=== PATIENT | female | born 1975 | race Caucasian/White ===

== ENCOUNTER → 2017-02-13 | Outpatient (REF) | payer OTHER ==
[~2017-02-13] MED LIST: /IPRA3SP; /ONDA4TA; /ONDA4TA OR; /SUCR1TA; ACET65TA; ATIV0.5T; BENT20TA; BIRTH CONTROL PILL OR; CEFT500T; CIPR500T4 OR; CLON0.5T; CLON0.5T OR; COLA100C2 OR; DICY20TA2 OR; DIFL150T OR; EFFE150C; EFFE150C OR; FLAG500T OR; HUMERA; MAXALT-MLT; METH2.5T OR; MIRALEX; MIRALEX OR; NICO21DI4 TD; OPAN10TA16 OR; OPANA; ORTHO TRI-CYCLEN; PENTASA; PENTASA OR; PERC5TAB8; PRED10TA2 OR; PRED20TA; PRIL20CA; PROP40TA; PROP60CA; PROP60TA OR; REPLAX; SENO8.6T5 OR; TRAZ50TA; TRAZ50TA OR; VITAMIN D50000 UNT; XOPE1.252; guaifenesin; mucinex; phenergan
[2017-02-13 12:23] LABS: BASO % 0.5 % (0.0-1.0); EOS # 0.2 K/mm3 (0.0-0.50); EOS % 2.8 % (0.0-3.0); LARGE UNSTAINED CELL # 0.1 K/mm3 (0.0-0.4); LARGE UNSTAINED CELL % 1.2 % (0.0-4.0); LYMPH # 2.3 K/mm3 (1.5-4.5); LYMPH % 34.8 % (24.0-44.0); MEAN CORPUSCULAR HEMOGLOBIN 33.2 pg (27.0-33.0); MEAN CORPUSCULAR HGB CONC 33.6 g/dl (32.0-36.5); MONO # 0.3 K/mm3 (0.0-0.8); MONO % 4.1 % (0.0-5.0); NEUTROPHILS # 3.8 K/mm3 (1.8-7.7); NEUTROPHILS % 56.5 % (36.0-66.0); PLATELET COUNT, AUTOMATED 228 k/mm3 (150-450); RED CELL DISTRIBUTION WIDTH 12.6 % (11.5-14.5); WHITE BLOOD COUNT 6.6 K/mm3 (4.0-10.0)
[2017-02-13 12:41] LABS: ALBUMIN 3.8 GM/DL (3.2-5.2); ALBUMIN/GLOBULIN RATIO 1.31 (1.00-1.93); ALKALINE PHOSPHATASE 68 U/L (45-117); ALT/SGPT 29 U/L (12-78); ANION GAP 7 MEQ/L (8-16); AST/SGOT 15 U/L (15-37); BILIRUBIN,TOTAL 0.5 MG/DL (0.2-1.0); BLOOD UREA NITROGEN 16 MG/DL (7-18); CALCIUM LEVEL 8.7 MG/DL (8.5-10.1); CARBON DIOXIDE LEVEL 25 MEQ/L (21-32); CHLORIDE LEVEL 106 MEQ/L (98-107); CHOLESTEROL LEVEL 213 MG/DL (<200); CREATININE FOR GFR 0.99 MG/DL (0.55-1.02); FREE T4 1.02 NG/DL (0.76-1.46); GLOMERULAR FILTRATION RATE > 60.0 (>60); GLUCOSE, FASTING 101 MG/DL (70-105); POTASSIUM SERUM 4.4 MEQ/L (3.5-5.1); SODIUM LEVEL 138 MEQ/L (136-145); TOTAL PROTEIN 6.7 GM/DL (6.4-8.2); TRIGLYCERIDES LEVEL 111 MG/DL (<150)
[2017-02-13 12:50] LABS: VITAMIN B12 LEVEL 441 PG/ML
[2017-02-13 12:51] LABS: FOLATE 13.3 NG/ML
[2017-02-13 13:09] LABS: ERYTHROCYTE SEDIMENTATION RATE 8 mm/hr (0-20)
== END ==
LOC: M LABDRAW1 11:05
PROVIDERS: ATTEND Family Medicine
DX: Z00.00 Encounter for general adult medical examination without abnormal findings (principal); K50.90 Crohn's disease, unspecified, without complications

== ENCOUNTER → 2017-04-04 | Day surgery (SDC) | payer OTHER ==
[~2017-04-04] VITALS: Ht 162.6 cm; Wt 73.9 kg
[~2017-04-04] MED LIST changes: +EFFE150C PO; +IBUPROFEN 600 MG TAB PO PRN; +KETOROLAC 60 MG/2 ML VIAL (J1885) As Ordered ONE; +LIDOCAINE 2% INJ 100 MG/5 ML SDV (FOR ANES.) As Ordered ONE; +LISI10TA4 PO; +LR 1,000 ML IV SCH; +MEDR1VL IM; +MEPERIDINE INJ 25 MG/ML VIAL (J2175) IV PRN; +METOCLOPRAMIDE INJ 10MG/2ML VIAL (J2765) IV PRN; +MIDAZOLAM INJ 2 MG/2 ML VIAL (J2250) As Ordered ONE; +ONDANSETRON 4MG/2ML VIAL (J2405) As Ordered ONE; +ONDANSETRON 4MG/2ML VIAL (J2405) IV PRN; +PROP40TA PO; +PROPOFOL 200 MG/20 ML VIAL As Ordered ONE; +VALT1TAB PO; +dexameTHASONE 4 MG/ML 1ML VIAL (J1100) As Ordered ONE; +fentaNYL 100 MCG/2 ML INJECTION (J3010) As Ordered ONE; +fentaNYL 100 MCG/2 ML INJECTION (J3010) IV PRN
[2017-04-04 08:41] LABS: CONTROL LINE UCG INT CTR LINE PRESENT
[2017-04-04] MEDS: LR 1,000 ML IV SCH ×2 (08:44→11:06)
--- NOTE | 2017-04-04 11:21 | REP ---
Supine abdomen single AP view, portable study: Comparison is 06/13/2010. There is no visible radiopaque IUD. The bowel gas pattern is normal. There are pelvic calcifications, unchanged, likely phleboliths. Skeletal structures and soft tissues are otherwise unremarkable. Impression: No radiopaque IUD is identified. Signed by Armani Arroyo MD 04/04/2017 11:13 A
[2017-04-04] MEDS: PERCOCET 5MG/325MG TAB PO PRN (11:49)
[2017-04-04 12:00] VITALS: BP 139/88
--- NOTE | 2017-04-04 18:11 | RO ---
DATE OF PROCEDURE: 04/04/2017 PREOPERATIVE DIAGNOSIS: Inaccessible intrauterine device (IUD) in the office. POSTOPERATIVE DIAGNOSIS: Intrauterine device (IUD) not present. PROCEDURE: Diagnostic hysteroscopy and intraoperative x-ray. SURGEON: Dr. Michelle Smith FIELD SALES CONSULTANT: ANESTHESIA: LMA. DESCRIPTION OF PROCEDURE: Kelsea was brought to the operating room where sufficient LMA anesthesia was induced. She was prepped, draped and positioned in the usual sterile fashion. The uterus was sounded o 7-1/2 and dilated enough to allow introduction of the hysteroscope, which was used to visualize the endometrial cavity. Some normal sort of fluffy tissue along the endometrium, normal ostia and an empty cavity. Did not see any evidence of previous injury or difficulty, or inflammation. She had had a preoperative film that stated the IUD was in the endometrial cavity, and I had not been able to get it in the office and decision was made to go ahead and do some intraoperative x-rays because the patient had felt that it had fallen out and that is what had driven the initial film. I certainly did not see any evidence of the IUD hysteroscopically whatsoever, so we went ahead and did x-rays, pelvis to diaphragm, so there were three films, to make sure we got all of it and there was no IUD present. So, although it took a moment to pause to take those films, that certainly prevented us from laparoscopically going after an IUD that was clearly not there and so the procedure was ended. Estimated blood loss for the procedure was maybe 2 mL. Fluid replacement was crystalloid. Complications: None other than the finding of the IUD not present. Condition and Disposition: Kelsea tolerated the procedure well and was recovering in the recovery room in good condition.
== END | disposition home or self-care (01) ==
LOC: M SDC 08:01
PROVIDERS: ATTEND Obstetrics & Gynecology
DX: Z30.431 Encounter for routine checking of intrauterine contraceptive device (principal); K50.90 Crohn's disease, unspecified, without complications; N28.9 Disorder of kidney and ureter, unspecified; F32.9 Major depressive disorder, single episode, unspecified; N94.3 Premenstrual tension syndrome; K44.9 Diaphragmatic hernia without obstruction or gangrene; F41.9 Anxiety disorder, unspecified; G43.909 Migraine, unspecified, not intractable, without status migrainosus; F17.210 Nicotine dependence, cigarettes, uncomplicated; Z88.2 Allergy status to sulfonamides; Z79.899 Other long term (current) drug therapy
CPT/HCPCS: 58555; 74000; 84703; J1100; J1885; J2250; J2405; J3010

== ENCOUNTER → 2017-07-04 | Outpatient (REF) | payer OTHER ==
[~2017-07-04] MED LIST changes: -IBUPROFEN 600 MG TAB PO PRN; -KETOROLAC 60 MG/2 ML VIAL (J1885) As Ordered ONE; -LIDOCAINE 2% INJ 100 MG/5 ML SDV (FOR ANES.) As Ordered ONE; -LR 1,000 ML IV SCH; -MEPERIDINE INJ 25 MG/ML VIAL (J2175) IV PRN; -METOCLOPRAMIDE INJ 10MG/2ML VIAL (J2765) IV PRN; -MIDAZOLAM INJ 2 MG/2 ML VIAL (J2250) As Ordered ONE; -ONDANSETRON 4MG/2ML VIAL (J2405) As Ordered ONE; -ONDANSETRON 4MG/2ML VIAL (J2405) IV PRN; -PROPOFOL 200 MG/20 ML VIAL As Ordered ONE; -dexameTHASONE 4 MG/ML 1ML VIAL (J1100) As Ordered ONE; -fentaNYL 100 MCG/2 ML INJECTION (J3010) As Ordered ONE; -fentaNYL 100 MCG/2 ML INJECTION (J3010) IV PRN
[2017-07-04 12:40] LABS: ALBUMIN 3.8 GM/DL (3.2-5.2); ALBUMIN/GLOBULIN RATIO 1.19 (1.00-1.93); ALKALINE PHOSPHATASE 73 U/L (45-117); ALT/SGPT 26 U/L (12-78); ANION GAP 6 MEQ/L (8-16); AST/SGOT 14 U/L (15-37); BILIRUBIN,TOTAL 0.6 MG/DL (0.2-1.0); BLOOD UREA NITROGEN 14 MG/DL (7-18); CALCIUM LEVEL 8.8 MG/DL (8.5-10.1); CARBON DIOXIDE LEVEL 27 MEQ/L (21-32); CHLORIDE LEVEL 107 MEQ/L (98-107); CREATININE FOR GFR 0.96 MG/DL (0.55-1.02); GLOMERULAR FILTRATION RATE > 60.0 (>60); GLUCOSE, FASTING 101 MG/DL (70-105); SODIUM LEVEL 140 MEQ/L (136-145)
== END ==
LOC: M LABDRAW1 10:13
PROVIDERS: ATTEND Family Medicine
DX: E55.9 Vitamin D deficiency, unspecified (principal); I10 Essential (primary) hypertension

== ENCOUNTER 2018-10-15 11:23 | Emergency (ER) | payer OTHER ==
[~2018-10-15] VITALS: Ht 162.6 cm; Wt 77.3 kg
[~2018-10-15 11:23] MED LIST changes: -EFFE150C PO; +EFFE150C2 PO; -PROP40TA PO; +PROP40TA62 PO
[2018-10-15] MEDS ORDERED: ROBA500T PO (12:11)
[2018-10-15] MEDS ORDERED: NAPR-50 PO (12:11)
[2018-10-15] MEDS ORDERED: KETOROLAC 30 MG/ML VIAL (J1885) As Ordered ONE (12:15)
[2018-10-15] MEDS ORDERED: KETOROLAC 60 MG/2 ML VIAL (J1885) IM ONE (12:15)
[2018-10-15 12:35] VITALS: BP 100/58
--- NOTE | 2018-10-16 07:33 | ECGEPIP ---
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 Order Number: [id number] Reading MD: Cal Jacobs Measurements Intervals [place] Rate: 63 P: 54 ME: 157 QRS: 49 QRSD: 84 T: 53 QT: 409 QTc: 419 Interpretive Statements SINUS RHYTHM POSSIBLE LEFT ATRIAL ENLARGEMENT NO PRIORS FOR COMPARISON Electronically Signed On 10-16-2018 7:33:09 EST by Cal Jacobs
== END 2018-10-15 12:40 | disposition home or self-care (01) ==
LOC: M ED 11:23
DX: S46.912A Strain of unspecified muscle, fascia and tendon at shoulder and upper arm level, left arm, initial encounter (principal)
CPT/HCPCS: 93005; 96372; 99284; J1885

== ENCOUNTER → 2018-12-03 | Outpatient (REF) | payer OTHER ==
[~2018-12-03] MED LIST changes: +NAPR-50 PO; +ROBA500T PO
== END ==
LOC: M LABDRAW1 15:56
PROVIDERS: ATTEND Internal Medicine Gastroenterology
DX: R14.0 Abdominal distension (gaseous) (principal)

== ENCOUNTER → 2019-01-05 | Outpatient (REF) | payer MEDICAID, OTHER ==
[~2019-01-05] MED LIST changes: -/IPRA3SP; -/ONDA4TA; -/ONDA4TA OR; -/SUCR1TA; +ATRO1SOL13; -NAPR-50 PO; +NAPR-837 PO; +ONDA-1; +ONDA-1 OR; +SUCR1TAB56
[2019-01-05 14:00] LABS: INFLUENZA A AMPLIFICATION NEGATIVE (NEGATIVE); INFLUENZA B AMPLIFICATION NEGATIVE (NEGATIVE)
== END ==
LOC: M LAB REF 12:54
PROVIDERS: ATTEND Physician Assistant Medical
DX: J11.1 Influenza due to unidentified influenza virus with other respiratory manifestations (principal)

== ENCOUNTER → 2019-03-09 | Outpatient (REF) | payer OTHER ==
[2019-03-09 11:35] LABS: BASO % 0.5 % (0.0-1.0); EOS # 0.1 10^3/uL (0.0-0.50); EOS % 1.1 % (0.0-3.0); HEMATOCRIT 42.3 % (36.0-47.0); LYMPH # 2.5 10^3/uL (1.5-4.5); LYMPH % 38.1 % (24.0-44.0); MEAN CORPUSCULAR HEMOGLOBIN 32.9 pg (27.0-33.0); MEAN CORPUSCULAR HGB CONC 33.1 g/dl (32.0-36.5); MEAN CORPUSCULAR VOLUME 99.5 fl (80.0-96.0); MONO # 0.5 10^3/uL (0.0-0.8); MONO % 7.4 % (0.0-5.0); NEUTROPHILS # 3.4 10^3/uL (1.8-7.7); NEUTROPHILS % 52.7 % (36.0-66.0); PLATELET COUNT, AUTOMATED 220 10^3/uL (150-450); RED BLOOD COUNT 4.25 10^6/uL (4.00-5.40); WHITE BLOOD COUNT 6.5 10^3/uL (4.0-10.0)
[2019-03-09 11:36] LABS: AMORPHOUS SEDIMENT SMALL (NEGATIVE); APPEARANCE, URINE TURBID (CLEAR); BACTERIA, URINE AUTO NEGATIVE (NEGATIVE); BILIRUBIN, URINE AUTO NEGATIVE (NEGATIVE); BLOOD, URINE BLOOD NEGATIVE (NEGATIVE); COLOR, URINE YELLOW (YELLOW); GLUCOSE, URINE (UA) AUTO 1+ mg/dL (NEGATIVE); KETONE, URINE AUTO NEGATIVE (NEGATIVE); LEUKOCYTE ESTERASE, URINE AUTO NEGATIVE (NEGATIVE); MUCUS, URINE LARGE (NEGATIVE); NITRITE, URINE AUTO NEGATIVE (NEGATIVE); PROTEIN, URINE AUTO NEGATIVE (NEGATIVE); RBC, URINE AUTO 8 /HPF (0-3); SPECIFIC GRAVITY URINE AUTO 1.027 (1.002-1.035); SQUAMOUS EPITHELIAL CELL UR AU 0 /HPF (0-6); UROBILINOGEN, URINE AUTO 0.2 mg/dL (0.0-2.0); WBC, URINE AUTO 0 /HPF (0-3)
[2019-03-09 11:57] LABS: ALBUMIN 3.2 GM/DL (3.2-5.2); ALT/SGPT 27 U/L (12-78); BILIRUBIN,TOTAL 0.7 MG/DL (0.2-1.0); BLOOD UREA NITROGEN 11 MG/DL (7-18); CALCIUM LEVEL 8.6 MG/DL (8.5-10.1); CARBON DIOXIDE LEVEL 27 MEQ/L (21-32); CHLORIDE LEVEL 109 MEQ/L (98-107); CHOLESTEROL LEVEL 170 MG/DL (<200); CHOLESTEROL RISK RATIO 2.656 (<5); CREATININE FOR GFR 0.89 MG/DL (0.55-1.30); FREE T4 0.97 NG/DL (0.76-1.46); GLOMERULAR FILTRATION RATE > 60.0 (>58); GLUCOSE, FASTING 98 MG/DL (70-100); HDL CHOLESTEROL 64 MG/DL (>40); LDL CHOLESTEROL 82 MG/DL (<100); NON-HDL-C 106 MG/DL; POTASSIUM SERUM 4.4 MEQ/L (3.5-5.1); SODIUM LEVEL 143 MEQ/L (136-145); TOTAL 25(OH) VITAMIN D 48.9 NG/ML (30.0-100.0); TOTAL PROTEIN 6.4 GM/DL (6.4-8.2); TRIGLYCERIDES LEVEL 120 MG/DL (<150); VITAMIN B12 LEVEL 630 PG/ML (247-911)
[2019-03-09 12:14] LABS: ERYTHROCYTE SEDIMENTATION RATE 5 mm/hr (0-20)
== END ==
LOC: M LAB REF 10:46
PROVIDERS: ATTEND Family Medicine
DX: I10 Essential (primary) hypertension (principal); F33.9 Major depressive disorder, recurrent, unspecified; G43.009 Migraine without aura, not intractable, without status migrainosus

== ENCOUNTER → 2019-03-30 | Outpatient (CLI) | payer OTHER ==
--- NOTE | 2019-03-30 18:30 | REP ---
Clinical: Pain. Technique: Internal rotation, external rotation, and Y view of the left shoulder. Findings: Generalized age-related changes are appreciated. No overt osteoarthritic degenerative findings noted. No acute fracture dislocation. Acromioclavicular and glenohumeral joints are intact and normal. Impression: Generalized age-related changes. Electronically Signed by Jair Roca MD 03/30/2019 06:21 P
== END ==
LOC: M WUC 17:46
PROVIDERS: ATTEND Physician Assistant
DX: M25.512 Pain in left shoulder (principal)

== ENCOUNTER → 2019-10-23 | Outpatient (REF) | payer OTHER ==
[2019-10-23 11:35] LABS: CREATININE FOR GFR 1.13 MG/DL (0.55-1.30); GLOMERULAR FILTRATION RATE 56.2 (>58)
== END ==
LOC: M LAB REF 11:07
PROVIDERS: ATTEND Physician Assistant
DX: M47.22 Other spondylosis with radiculopathy, cervical region (principal)

== ENCOUNTER 2020-03-03 05:35 | Inpatient (IN) | payer OTHER ==
[2020-03-03] VITALS (11 sets, daily range): BP systolic 105–155; BP diastolic 61–92
[~2020-03-03] VITALS: Ht 162.6 cm; Wt 83.0 kg
[2020-03-03] MEDS ORDERED: ACYC400T PO (05:56)
[2020-03-03] MEDS ORDERED: FLUO40CA PO (05:56)
[2020-03-03] MEDS ORDERED: GABA-843 PO (05:56)
[2020-03-03] MEDS ORDERED: PROP60TA18 PO (05:56)
[2020-03-03 06:04] LABS: BASO # 0.1 10^3/uL (0.0-0.2); BASO % 0.4 % (0.0-1.0); EOS # 0.1 10^3/uL (0.0-0.5); EOS % 0.5 % (0.0-3.0); HEMATOCRIT 42.4 % (36.0-47.0); LYMPH # 2.8 10^3/uL (1.5-5.0); LYMPH % 24.8 % (24.0-44.0); MEAN CORPUSCULAR HEMOGLOBIN 31.4 pg (27.0-33.0); MEAN CORPUSCULAR VOLUME 95.1 fl (80.0-96.0); MONO # 0.6 10^3/uL (0.0-0.8); MONO % 5.7 % (0.0-5.0); NEUTROPHILS # 7.6 10^3/uL (1.5-8.5); NEUTROPHILS % 68.2 % (36.0-66.0); PLATELET COUNT, AUTOMATED 224 10^3/uL (150-450); RED BLOOD COUNT 4.46 10^6/uL (4.00-5.40); WHITE BLOOD COUNT 11.2 10^3/uL (4.0-10.0)
[2020-03-03 06:15] LABS: INR 1.15; PROTHROMBIN TIME 14.4 SECONDS (11.8-14.0)
[2020-03-03] MEDS ORDERED: ALBUTEROL 90 MCG/ACT 8GM HFA INHALER INH ONE (06:15)
[2020-03-03] MEDS ORDERED: dexameTHASONE 20MG/5ML VIAL (J1100 PER 1MG) IV ONE (06:15)
[2020-03-03 06:37] LABS: ALBUMIN 3.6 GM/DL (3.2-5.2); ALT/SGPT 34 U/L (12-78); BILIRUBIN,DIRECT 0.2 MG/DL (0.0-0.2); BILIRUBIN,TOTAL 0.7 MG/DL (0.2-1.0); CK-MB VALUE MASS 1.5 NG/ML (<3.6); CPK CREATINE PHOSPHOKINASE 82 U/L (26-192); LIPASE 79 U/L (73-393); MB/CK RELATIVE INDEX 1.83 (< OR =4); TROPONIN I 0.16 NG/ML (< 0.10)
[2020-03-03 07:17] LABS: HCG, SERUM QUALITATIVE NEGATIVE (NEGATIVE)
[2020-03-03] MEDS ORDERED: ISOVUE-370 76% 100ML VIAL As Ordered ONE (07:27)
[2020-03-03] MEDS ORDERED: MORPHINE 4 MG/ML 1ML VIAL/SYRINGE (J2270) IV ONE (07:45)
[2020-03-03] MEDS ORDERED: ONDANSETRON 4MG/2ML VIAL IV ONE (07:45)
--- NOTE | 2020-03-03 07:56 | REPVR ---
PROCEDURE INFORMATION: Exam: CT Angiography Chest With Contrast Exam date and time: 03/03/2020 6:55 AM Age: 44 years old Clinical indication: Shortness of breath; Chest pain; Additional info: Cp, SOB, pleuritic cp, R/O pe TECHNIQUE: Imaging protocol: Computed tomographic angiography of the chest with intravenous contrast. 3D rendering: MIP and/or 3D reconstructed images were created by the technologist. Radiation optimization: All CT scans at this facility use at least one of these dose optimization techniques: automated exposure control; mA and/or kV adjustment per patient size (includes targeted exams where dose is matched to clinical indication); or iterative reconstruction. Contrast material: ISOVUE 370; Contrast volume: 75 ml; Contrast route: IV; COMPARISON: CR PORTABLE CHEST X-RAY 03/03/2020 6:13 AM FINDINGS: Pulmonary arteries: There is a large saddle embolism spanning the right and left main pulmonary arteries extending to the lobar pulmonary arteries with significant decreased flow into the mid to distal segmental and subsegmental pulmonary arteries. The pulmonary trunk is dilated measuring around 3.2 centimetres. Aorta: The thoracic aorta is normal in caliber with no evidence of dissection. Lungs: There is a 5 mm calcified granuloma in the right middle lobe. Small patchy ground-glass opacities clustered in the posterior segment of the right upper lobe on axial images 52-71. Pleural space: Unremarkable. No pneumothorax. No pleural effusion. Heart: There is right heart dilatation and septal deviation to the left. Lymph nodes: Unremarkable. No enlarged lymph nodes. Spleen: Few calcified granuloma seen in the spleen. Bones/joints: Unremarkable. No acute fracture. Soft tissues: Unremarkable. IMPRESSION: 1. Large saddle embolism spanning the right and left main pulmonary arteries extending to the upper and lower lobar pulmonary arteries with significant decreased perfusion to the segmental and subsegmental branches with CT evidence of right heart strain. 2. Cluster of small patchy opacities in the posterior segment of the right upper lobe are nonspecific and could represent early parenchymal infarcts or infectious/inflammatory infiltrates. 3. 5 mm right middle lobe calcified granuloma and calcified splenic granulomas. Electronically signed by: Hernando Nelson On 03/03/2020 07:55:59 AM
[2020-03-03] MEDS ORDERED: HEPARIN SOD (PORCINE) 5000UNITS/ML VIAL (J1644 PER 1000UNITS) IV ONE (08:15)
[2020-03-03 08:27] LABS: PARTIAL THROMBOPLASTIN TIME 28.3 SECONDS (25.0-38.4)
[2020-03-03] MEDS: HEPARIN DRIP 25,000 UNITS in IV 1 EA IV SCH ×3 (08:29→14:12)
[2020-03-03 08:30] LABS: CK-MB VALUE MASS 1.7 NG/ML (<3.6); MB/CK RELATIVE INDEX 2.21 (< OR =4); TROPONIN I 0.18 NG/ML (< 0.10)
[2020-03-03] MEDS ORDERED: ONDANSETRON 4MG/2ML VIAL IV PRN (09:00)
[2020-03-03] MEDS ORDERED: VITA50005 PO (09:13)
--- NOTE | 2020-03-03 10:15 | REP ---
CHEST, SINGLE VIEW: Single view of the chest is performed. There is mild right upper lobe infiltrate. The left lung is clear. The heart is not enlarged. Mediastinal silhouette is unremarkable. IMPRESSION: Mild right upper lobe infiltrate. Electronically Signed by Armani Ann MD 03/03/2020 07:38 P
[2020-03-03] MEDS ORDERED: fentaNYL 100 MCG/2 ML INJECTION (J3010) As Ordered ONE (11:23)
[2020-03-03] MEDS ORDERED: MIDAZOLAM INJ 2MG/2ML VIAL (J2250 PER 1MG) As Ordered ONE (11:24)
[2020-03-03] MEDS ORDERED: LIDOCAINE 1% MDV 20ML VIAL As Ordered ONE (11:25)
[2020-03-03] MEDS ORDERED: ISOVUE-300 61% 50ML VIAL As Ordered ONE (11:25)
[2020-03-03] MEDS ORDERED: diphenhydrAMINE 50MG/ML VIAL (J1200) As Ordered ONE (11:25)
[2020-03-03] MEDS ORDERED: HEPARIN SOD (PORCINE) 5000UNITS/ML VIAL (J1644 PER 1000UNITS) IV PRN (11:30)
[2020-03-03] MEDS: FLUoxetine 20 MG CAP PO SCH (11:49)
[2020-03-03] MEDS ORDERED: HEPARIN 25,000 UNITS/250 ML D5W BAG (100 UNITS/ML) (J1644 PER 1000UNITS) As Ordered ONE (12:11)
[2020-03-03] MEDS ORDERED: HEPARIN DRIP 25,000 UNITS in IV 1 EA IV SCH (12:15)
[2020-03-03] MEDS ORDERED: ALTEPLASE 2MG/2ML VIAL As Ordered ONE (12:27)
--- NOTE | 2020-03-03 13:17 | HPEPDOC ---
[facility] Medical History & Physical Date of Admission Mar 03, 2020 Date of Service: Mar 03, 2020 History and Physical PCP: Dr. Walters in [place]. CHIEF COMPLAINT: Exertional dyspnea and chest pain HISTORY OF PRESENT ILLNESS: Pt is a 44 yo female with PMH of Crohn's disease and active tobacco use presented to [facility] ER via private vehicle d/t exertional dyspnea and precordial/epigastric chest pain that started yesterday around lunch time. She reported that she never had this before, and that her exertional dyspnea and chest pain have been worsening. She said the pain is in sharp/tight precordial/epigastric region across but worse on left side, aggrav factor including palpation/pressure and inspiration. Denies dyspnea at rest. Pt reported nausea without vomiting, dizziness, and lightheadedness. Denies any fever, chills, or palpitation. It was noted that 2 weeks ago she had an injury of her left knee which is reported to be torn ACL with MCL strain and ripped medial meniscus without bone fracture. Pt reported prolonged immoblization d/t the injury but denies any pain or swelling in b/l UE or LE except for around the left knee where the injury was at. She had no hx of any clots including CVA, GA, PE, or DVT. She smokes 3 cig/day X 20 yrs. Pt was on depot povera since 2016. Pt also reported abdominal pain in all 4 quad but reported no bloody stool. PAST MEDICAL HISTORY: 1. Crohn's disease with exacerbation 2. Constipation 3. Anxiety 4. Hx of migraines 5. Calcified right lung nodule 6. Leukocytosis 7. Thrombocytopenia PAST SURGICAL HISTORY: 1. B/l ear tube insertion in child hall SOCIAL HISTORY:. Resides in: home, lives with sister, boyfriend, and her son Children: son Tobacco use:active smoker ETOH: reported very occasionally Illicit drug use: marijuna FAMILY HISTORY: Pt voiced no significant FHX except for grandfather had a blood clot but she is unsure what organ was affected/the diagnosis ALLERGIES: Please see below. REVIEW OF SYSTEMS: CONSTITUTIONAL: Neg for fever/chills. HEENT: Neg for vision blurriness CARDIOVASCULAR: Pos for chest pain RESPIRATORY: Pos for exertional dyspnea and chest pain. Denies wheezing GASTROINTESTINAL: Pos for abd pain; denies blood in stool SKIN: mild swelling and pain in left knee NEUROLOGICAL: NO new acute numbness, tingling, or loss of sensation HOME MEDICATIONS: Please see below. PHYSICAL EXAMINATION: VITAL SIGNS: Tdodalaotyo77.2, pulse 95, respiratory rate18, blood pressure 126/87, pulse oximetry 96% on 2L NC GENERAL APPEARANCE: In mild to mod distress, alert and awake. HEENT: Head normocephalic, atraumatic, mucosa moist and pink CARDIOVASCULAR: Mildly tachycardic, normal S1 and S2, no murmur RESPIRATORY: mildly decreased breath sounds in the right lung field, good air entry b/l, no obvious rales or wheezing aus. ABDOMEN: Soft, no guarding, no abdominal pain. EXTREMITIES: No Niko's sign b/l. NEUROLOGICAL: Memory and cognitive function grossly stable. CN2-12 grossly stable. Pt able to move b/l UE and right LE, left LE in knee immobilizer PSYCHIATRIC: Mood appro to situation LABORATORY DATA: See below. IMAGIN03/03/2020 CTA showed a large saddle embolism spanning b/lft main pulmonary arteries extending to the upper and lower lobar pulmonary arteries; right heart strain. Cluster of small patchy opacities in the posterior segment of the RUL. 5 mm RML calcified granuloma and calcified splenic granulomas. CXR showed mild right upper lobe infiltrate. MICROBIOLOGY: Please see below. ASSESSMENT: Pt is a 44 yo female with PMH of Crohn's disease and active tobacco use presented to [facility] ER d/t exertional dyspnea and precordial/epigastric chest pain that started yesterday found to have saddle pulm embolism . PLAN: 1. Saddle embolism, showed a large saddle embolism spanning b/left main pulmonary arteries extending to the upper and lower lobar pulmonary arteries; right heart strain. Cluster of small patchy opacities in the posterior segment of the RUL. 5 mm RML calcified granuloma and calcified splenic granulomas. S/p heparin bolus and heparin drip. Pt's vitals currently roughly stable with NC. She is undergoing catheter directed thrombolysis with IR. 2. Crohn's disease. Not on medication at home. Pt likely does not have a Crohn's flare and abd pain is likely 2/2 decreased oxygenation to GI system. Follow up lactate, anticipate improvement after thrombolysis 3. Anxiety. Cont home med DVT prophylaxis: on Heparin GI prophylaxis: Protonix Attending attestation: I evaluated and examined the patient in person; I discussed the care with Resident in detail and agree with the plan above. Vital Signs Vital Signs Date Time Temp Pulse Resp B/P (MAP) Pulse Ox O2 Delivery O2 Flow Rate FiO2 03/03/20 11:38 98.6 95 20 97 Nasal Cannula 2 03/03/20 11:02 105/80 (88) Laboratory Data Labs 24H Laboratory Tests 2 03/03/20 05:54: Immature Granulocyte % (Auto) 0.4, Neutrophils (%) (Auto) 68.2H, Lymphocytes (%) (Auto) 24.8, Monocytes (%) (Auto) 5.7H, Eosinophils (%) (Auto) 0.5, Basophils (%) (Auto) 0.4, Neutrophils # (Auto) 7.6, Lymphocytes # (Auto) 2.8, Monocytes # (Auto) 0.6, Eosinophils # (Auto) 0.1, Basophils # (Auto) 0.1, Nucleated Red Blood Cells % (auto) 0.0, Prothrombin Time 14.4H, Prothromb Time International Ratio 1.15, Activated Partial Thromboplast Time 28.3, Total Bilirubin 0.7, Dire ct Bilirubin 0.2, Aspartate Amino Transf (AST/SGOT) 21, Alanine Aminotransferase (ALT/SGPT) 34, Alkaline Phosphatase 96, Total Creatine Kinase 82, Creatine Kinase MB 1.5, Creatine Kinase MB Relative Index 1.83, Troponin I 0.16H, Total Protein 7.0, Albumin 3.6, Albumin/Globulin Ratio 1.1L, Lipase 79, Human Chorionic Gonadotropin, Qual NEGATIVE 03/03/20 06:01: POC Glucose (Misc Panel) 195H, POC Sodium (Misc Panel) 140, POC Potassium (Misc Panel) 3.8, POC Chloride (Misc Panel) 106, POC Total CO2 (Misc Panel) 19.0L, POC Blood Urea Nitrogen (Misc Panel 15, POC Ionized Calcium (Misc Panel) 4.5, POC Creatinine (Misc Panel) 0.9, POC Hematocrit (Misc Panel) 44.0 03/03/20 07:12: Total Creatine Kinase 77, Creatine Kinase MB 1.7, Creatine Kinase MB Relative Index 2.21, Troponin I 0.18H 03/03/20 08:40: CBC/BMP Laboratory Tests 03/03/20 05:54 Home Medications Scheduled Apixaban (Eliquis) 5 Mg Tablet, 5 MG PO BID Take 10 mg BID for 6 days followed by 5 mg BID indefinitely. Ergocalciferol (Vitamin D2) (Vitamin D2) 50,000 Units Cap, 50,000 UNITS PO QWEEK SATURDAYS Fluoxetine Hcl (Fluoxetine HCl) 40 Mg Capsule, 40 MG PO DAILY Gabapentin (Gabapentin) 300 Mg Capsule, 300 MG PO TID Propranolol HCl (Propranolol HCl) 60 Mg Tablet, 60 MG PO BID Scheduled PRN Acyclovir (Acyclovir) 400 Mg Tablet, 400 MG PO TID PRN for COLD SORES Oxycodone/Acetaminophen (Oxycodone-Acetaminophen 5-325) 1 Each Tablet, 1 TAB PO Q8HP PRN for MILD/MODERATE PAIN (PS 1-7) Allergies Coded Allergies: Sulfa (Sulfonamide Antibiotics) (Verified Allergy, Unknown, rash, 03/03/20) sulfamethoxazole (Verified Allergy, Unknown, rash, 03/03/20) sulfisoxazole (Verified Allergy, Unknown, rash, 03/03/20) A-FIB/CHADSVASC A-FIB History Current/History of A-Fib/PAF?: No GME ATTESTATION GME ATTESTATION My faculty preceptor for this patient encounter was physically present during the encounter and was fully available. All aspects of the patient interview, examination, medical decision making process, and medical care plan development were reviewed and approved by the faculty preceptor. The faculty preceptor is aware and concurs with the plan as stated in the body of this note and will attest to such by his/her cosignature. LUZ CAMPUZANO DO Mar 03, 2020 13:17 CAREY AMARAL MD Mar 07, 2020 08:23
--- NOTE | 2020-03-03 13:32 | IRMSE ---
[facility] IR Moderate Sedation Eval. Date and Time Date: Mar 03, 2020 Time: 13:32 ASA Classification ASA Classification: II-Mild systemic disease Mallampati Score: II NPO: Yes Obstructive Sleep Apnea: No Interval Plan: moderate sedation REYNALDO MILTON MD Mar 03, 2020 13:32
--- NOTE | 2020-03-03 13:34 | POST-OPPD ---
Postoperative Procedure Note Date Of Procedure: Mar 03, 2020 Time Of Procedure: 13:32 PREOPERATIVE DIAGNOSIS: saddle pulmonary embolus. heart strain POSTOPERATIVE DIAGNOSIS: same FINDINGS: same PROCEDURE: infusion catheter placed in main and right pulmonary artery for catheter directed thrombolysis. SURGEON: greta ANESTHESIA: mod sed ESTIMATED BLOOD LOSS: < 5 ml COMPLICATIONS: none POSTOPERATIVE CONDITION: stable REYNALDO MILTON MD Mar 03, 2020 13:34
[2020-03-03] MEDS: ALTEPLASE RECOMBINANT 10 MG in NS 990 ML IV SCH ×2 (14:11→21:57)
[2020-03-03 14:23] LABS: HEMATOCRIT 40.1 % (36.0-47.0); HEMOGLOBIN 13.4 g/dl (12.0-15.5); MEAN CORPUSCULAR HEMOGLOBIN 32.2 pg (27.0-33.0); MEAN CORPUSCULAR HGB CONC 33.4 g/dl (32.0-36.5); MEAN CORPUSCULAR VOLUME 96.4 fl (80.0-96.0); PLATELET COUNT, AUTOMATED 194 10^3/uL (150-450); RED BLOOD COUNT 4.16 10^6/uL (4.00-5.40); WHITE BLOOD COUNT 8.7 10^3/uL (4.0-10.0)
--- NOTE | 2020-03-03 14:40 | ECGEPIP ---
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
--- NOTE | 2020-03-03 14:40 | ECGEPIP ---
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
[2020-03-03] MEDS: MORPHINE 4 MG/ML 1ML VIAL/SYRINGE (J2270) IV PRN ×2 (16:10→20:27)
[2020-03-03] MEDS: PERCOCET 5MG/325MG TAB PO PRN (19:31)
[2020-03-03] MEDS: PANTOPRAZOLE 20 MG TAB PO SCH (20:27)
[2020-03-03 22:09] LABS: HEMATOCRIT 37.4 % (36.0-47.0); HEMOGLOBIN 12.3 g/dl (12.0-15.5); MEAN CORPUSCULAR HEMOGLOBIN 31.4 pg (27.0-33.0); MEAN CORPUSCULAR HGB CONC 32.9 g/dl (32.0-36.5); MEAN CORPUSCULAR VOLUME 95.4 fl (80.0-96.0); PLATELET COUNT, AUTOMATED 173 10^3/uL (150-450); RED BLOOD COUNT 3.92 10^6/uL (4.00-5.40); WHITE BLOOD COUNT 12.2 10^3/uL (4.0-10.0)
[2020-03-03 22:21] LABS: FIBRINOGEN 336 MG/DL (221-452)
[2020-03-03 22:48] LABS: PARTIAL THROMBOPLASTIN TIME > 240.0 SECONDS (25.0-38.4)
[2020-03-04] VITALS (13 sets, daily range): BP systolic 104–134; BP diastolic 59–86
[2020-03-04] MEDS: MORPHINE 4 MG/ML 1ML VIAL/SYRINGE (J2270) IV PRN ×3 (00:36→12:27)
[2020-03-04] MEDS: PERCOCET 5MG/325MG TAB PO PRN ×4 (02:18→23:25)
[2020-03-04 06:06] LABS: HEMATOCRIT 35.2 % (36.0-47.0); HEMOGLOBIN 11.9 g/dl (12.0-15.5); MEAN CORPUSCULAR HEMOGLOBIN 32.6 pg (27.0-33.0); MEAN CORPUSCULAR HGB CONC 33.8 g/dl (32.0-36.5); MEAN CORPUSCULAR VOLUME 96.4 fl (80.0-96.0); PLATELET COUNT, AUTOMATED 148 10^3/uL (150-450); RED BLOOD COUNT 3.65 10^6/uL (4.00-5.40); WHITE BLOOD COUNT 11.6 10^3/uL (4.0-10.0)
[2020-03-04 06:23] LABS: PROTHROMBIN TIME 15.9 SECONDS (11.8-14.0)
[2020-03-04 06:24] LABS: FIBRINOGEN 317 MG/DL (221-452)
[2020-03-04 07:01] LABS: PARTIAL THROMBOPLASTIN TIME > 240.0 SECONDS (25.0-38.4)
[2020-03-04] MEDS: ALTEPLASE RECOMBINANT 10 MG in NS 990 ML IV SCH (07:37)
--- NOTE | 2020-03-04 07:57 | IPNPDOC ---
Subjective Date Seen The patient was seen on 03/04/20. Subjective Chief Complaint/HPI HISTORY OF PRESENT ILLNESS: Pt is a 44 yo female with PMH of Crohn's disease and active tobacco use presented to [facility] ER via private vehicle d/t exertional dyspnea and precordial/epigastric chest pain that started yesterday around lunch time. She reported that she never had this before, and that her exertional dyspnea and chest pain have been worsening. She said the pain is in sharp/tight precordial/epigastric region across but worse on left side, aggrav factor including palpation/pressure and inspiration. Denies dyspnea at rest. Pt reported nausea without vomiting, dizziness, and lightheadedness. Denies any fever, chills, or palpitation. It was noted that 2 weeks prior to admission she had an injury of her left knee which is reported to be torn ACL with MCL strain and ripped medial meniscus without bone fracture. Pt reported prolonged immoblization d/t the injury but denies any pain or swelling in b/l UE or LE except for around the left knee where the injury was at. She had no hx of any clots including CVA, IN, PE, or DVT. She smokes 3 cig/day X 20 yrs. Pt was on depot povera since 2016. Pt also reported abdominal pain in all 4 quad but reported no bloody stool. Today pt reported improving exertional dyspnea, chest pain, and abdominal pain. She reported that she has not had any BM. Reported pain right side of the neck the cathter is at; denies any pain in her extremities other than her left knee which was injured 2 wks ago. PTT was at 141 this morning compared to >240 yesterday afternoon, and heparin for was held for another hour and restart at lower rate per protocol. Denies fever or chills Constitutional: Denies: Chills, Fever ENT: Reports: Other Symptoms (pain with swallowing) Pulmonary: Reports: Dyspnea, Cough Cardiovascular: Reports: Chest Pain Gastrointestinal: Reports: Abdominal Pain; Denies: Diarrhea, Melena, Hematochezia Neurological: Denies: Change in speech Objective Physical Examination General Exam: Positive: Alert, Cooperative, Moderate Distress Eye Exam: Positive: Conjunctiva & lids normal; Negative: Sclera icteric ENT Exam: Positive: Other ENT (mild swelling and ecchymosis on face) Neck Exam: Positive: Other (infusion catheter in place on right neck, covered with sheath) Chest Exam: Positive: Diminished (bilaterally worse on the upper lung ruggiero); Negative: Rales, Rhonchi, Wheezing Heart Exam: Positive: Rate Normal, Regular Rhythm, Normal S1 Abdomen Exam: Positive: BS Hypoactive, Soft, Tenderness (in all 4 quadrants) Extremity Exam: Positive: Edema (mild in b/l LE) Neuro Exam: Positive: Normal Speech, Normal Tone Psych Exam: Positive: Mental status NL, Memory Intact, Oriented x 3 Assessment /Plan Assessment ASSESSMENT: Pt is a 44 yo female with PMH of Crohn's disease and active tobacco use presented to [facility] ER d/t exertional dyspnea and precordial/epigastric chest pain that started yesterday found to have saddle pulm embolism , s/p catheter directed thrombolysis . PLAN: 1. Submassive, Saddle embolism, CTA upon admissionshowed a large saddle embolism spanning b/left main pulmonary arteries extending to the upper and lower lobar pulmonary arteries; right heart strain. Cluster of small patchy opacities in the posterior segment of the RUL. Pt was given heparin bolus and started on heparin drip. IR consulted; s/p catheter directed thrombolysis with IR 03/04/2020, now on heparin drip. Pt's vitals currently roughly stable on RA. Planned for second procedure with IR today to see if there's any remaining PE; NPO for test/procedure. CTA also was ordered. 2. Crohn's disease. Not on medication at home. Pt also has some abdominal pain but No BM since admission, miralax and probiotics; dietary consult for Crohn's dz diet 3. Anxiety. Cont home med DVT prophylaxis: on Heparin GI prophylaxis: Protonix Plan/VTE VTE Prophylaxis Ordered?: Yes Disposition saddle embolism in lung, s/p directed thrombolysis. CTA and IR procedure today VS, I&O, 24H, Fishbone Vital Signs/I&O Vital Signs Date Time Temp Pulse Resp B/P (MAP) Pulse Ox O2 Delivery O2 Flow Rate FiO2 03/04/20 06:48 20 Room Air 03/04/20 06:00 65 113/78 (90) 94 03/04/20 04:00 98.1 03/03/20 20:00 3.0 I&O- Last 24 Hours up to 6 AM 03/04/20 06:00 Intake Total 2701.4 ml Output Total 1425 ml Balance 1276.4 ml Laboratory Data 24H LABS Laboratory Tests 2 03/03/20 08:40: 03/03/20 14:11: Nucleated Red Blood Cells % (auto) 0.0, Activated Partial Thromboplast Time 23 0.2*H, Fibrinogen 329 03/03/20 21:58: Nucleated Red Blood Cells % (auto) 0.0, Activated Partial Thromboplast Time > 240.0*H, Fibrinogen 336 03/04/20 05:55: Nucleated Red Blood Cells % (auto) 0.0, Activated Partial Thromboplast Time > 240.0*H, Fibrinogen 317, Prothrombin Time 15.9H, Prothromb Time International Ratio 1.30 CBC/BMP Laboratory Tests 03/03/20 14:11 03/03/20 21:58 03/04/20 05:55 GME ATTESTATION GME ATTESTATION My faculty preceptor for this patient encounter was physically present during the encounter and was fully available. All aspects of the patient interview, examination, medical decision making process, and medical care plan development were reviewed and approved by the faculty preceptor. The faculty preceptor is aware and concurs with the plan as stated in the body of this note and will attest to such by his/her cosignature. LUZ CAMPUZANO DO Mar 04, 2020 07:57
[2020-03-04 08:45] LABS: BLOOD UREA NITROGEN 10 MG/DL (7-18); CALCIUM LEVEL 8.1 MG/DL (8.5-10.1); CARBON DIOXIDE LEVEL 22 MEQ/L (21-32); CHLORIDE LEVEL 111 MEQ/L (98-107); CREATININE FOR GFR 0.69 MG/DL (0.55-1.30); GLOMERULAR FILTRATION RATE > 60.0 (>58); GLUCOSE, FASTING 113 MG/DL (70-100); POTASSIUM SERUM 3.5 MEQ/L (3.5-5.1); SODIUM LEVEL 141 MEQ/L (136-145)
[2020-03-04] MEDS: LACTOBACILLUS ACIDOPHILUS CAP (BACID) PO SCH (09:00)
[2020-03-04] MEDS: FLUoxetine 20 MG CAP PO SCH (09:01)
[2020-03-04] MEDS ORDERED: ISOVUE-370 76% 100ML VIAL As Ordered ONE (11:01)
[2020-03-04] MEDS ORDERED: MIRALAX *UNIT DOSE* 17GM PACKET PO PRN (11:30)
[2020-03-04 11:44] LABS: DRVV SCREEN 94.2 SEC
[2020-03-04 11:50] LABS: PTT LUPUS TYPE ANTICOAG SCREEN 2.3 (0-1.2)
[2020-03-04] MEDS: GABAPENTIN 300 MG CAP PO SCH ×3 (11:52→20:22)
[2020-03-04 12:00] LABS: LUPUS CONFIRM RATIO 1.4
[2020-03-04 12:05] LABS: NORMALIZED RATIO 1.64 (0.00-1.20)
[2020-03-04] MEDS: HEPARIN DRIP 25,000 UNITS in IV 1 EA IV SCH ×2 (12:15→17:01)
--- NOTE | 2020-03-04 16:27 | REP ---
REASON: Dyspnea. COMPARISON: Yesterday. The prior exam showed a large saddle embolism. CONTRAST: 100 mL Isovue-370. Once again, there is excellent visualization of the pulmonary arterial vasculature. The abnormal filling defect seen in the main pulmonary trunk as well as the main right and left pulmonary arteries has markedly improved. The main pulmonary trunk filling defects have abated as has the saddle-like filling defect, however, filling defects persist in second and third order arterials, but these areas too have shown increased vascularization. No new abnormal filling defects are identified. There is no mediastinal or hilar adenopathy. There are no pleural or pericardial effusions. The imaged upper abdomen and imaged osseous structures are unchanged. Evaluation of the lung ruggiero shows improved patchy and asymmetric densities in the right upper lobe. There are no new abnormal opacities. IMPRESSION: Improvement, as described above. Electronically Signed by Quan Michel DO 03/04/2020 05:05 P
[2020-03-04 16:30] LABS: HEMATOCRIT 34.6 % (36.0-47.0); HEMOGLOBIN 11.4 g/dl (12.0-15.5)
[2020-03-04] MEDS ORDERED: hydrOXYzine 50 MG TAB PO ONE (19:00)
--- NOTE | 2020-03-04 19:12 | REP ---
Clinical: Shortness of breath and chest pain . Comparison: 03/03/2020 . Findings: The mediastinum and cardiac silhouette are stable and within normal limits for portable technique. The lung ruggiero are clear without acute consolidation, effusion, or pneumothorax. Skeletal structures are intact. Impression: No acute cardiopulmonary process appreciated. Electronically Signed by Jair Roca MD 03/04/2020 07:03 P
--- NOTE | 2020-03-04 19:21 | POST-OPPD ---
Postoperative Procedure Note Date Of Procedure: Mar 04, 2020 Time Of Procedure: 12:05 PREOPERATIVE DIAGNOSIS: saddle PE POSTOPERATIVE DIAGNOSIS: same FINDINGS: I personally reviewed the 24 hours post thrombolysis follow up CTA chest. Interval resolution of saddle PE and right main and lobar emboli. Improved flow through left lobar and segmental branches. Tachycardia resolved. Safe to remove lysis catheter. PROCEDURE: pulmonary artery lysis catheter and IJ sheath removed, pressure held and hemostasis acheived. Sterile dressing applied to neck site. Continue systemic anti coagulation. SURGEON: Julia ANESTHESIA: none ESTIMATED BLOOD LOSS: < 5 ml COMPLICATIONS: none POSTOPERATIVE CONDITION: stable REYNALDO MILTON MD Mar 04, 2020 19:21
[2020-03-04] MEDS: PANTOPRAZOLE 20 MG TAB PO SCH (20:22)
[2020-03-04] MEDS: APIXABAN 5 MG TAB (ELIQUIS) PO SCH (20:50)
[2020-03-04] MEDS ORDERED: APIXABAN 5 MG TAB (ELIQUIS) PO SCH (21:00)
--- NOTE | 2020-03-04 21:32 | ECGEPIP ---
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 Electronically Signed on 03-04-2020 21:32:33 EDT by Nam White
--- NOTE | 2020-03-04 22:30 | ECHO ---
DATE OF PROCEDURE: 03/04/2020 REFERRING PHYSICIAN: Dr. Michael Martin INDICATION: Pulmonary embolism. HEIGHT: 162 cm WEIGHT: 83 kg 2D MEASUREMENTS: Left atrium: 3.1 cm Ventricular septum: 1.12 cm Posterior wall: 1.01 cm Left ventricle diastole: 3.7 cm Aortic root: 2.9 cm Aortic annulus: 1.9 cm Inferior vena cava: 1.2 cm (more than 50% respiratory variation). DOPPLER MEASUREMENTS: No aortic stenosis. No aortic regurgitation. No mitral stenosis. No mitral regurgitation Trace tricuspid regurgitation. No pulmonic regurgitation. LVOT VTI: 25.5 cm Mitral E velocity: 85.4 cm/s Mitral deceleration time: 201 ms Trace tricuspid regurgitation. Pulmonary artery systolic pressure: 27 mmHg MITRAL ANNULAR TISSUE DOPPLER: E prime septal: 4.5 cm/s E prime lateral: 13.0 cm/s DESCRIPTION: Rhythm was sinus. This was a moderately technically difficult echocardiogram. No pericardial effusion. This was a 2D, M-mode, color flow Doppler and pulse wave Doppler examination and included mitral annular tissue Doppler. CONCLUSIONS: 1. Normal left ventricle internal dimensions and wall thickness. Normal regional left ventricular (LV) wall motion and wall thickening. Normal LV systolic function. Left ventricular ejection fraction (LVEF) 70% by visual estimate. Normal LV diastolic function. 2. Normal right ventricle size and systolic function. Normal pulmonary artery systolic pressure (27 mmHg). Normal estimated central venous pressure (5-10 mmHg). 3. Normal echocardiogram Doppler. 4. Moderately technically difficult echocardiogram. MTDD
[2020-03-04 23:33] LABS: INR 1.34; PROTHROMBIN TIME 16.3 SECONDS (11.8-14.0)
[2020-03-04 23:34] LABS: PARTIAL THROMBOPLASTIN TIME 55.3 SECONDS (25.0-38.4)
[2020-03-05 06:00] VITALS: BP 146/83
[2020-03-05] MEDS ORDERED: ACETAMINOPHEN TAB 650MG DOSE (2X325MG) PO ONE (06:15)
[2020-03-05 06:34] LABS: HEMATOCRIT 33.1 % (36.0-47.0); HEMOGLOBIN 10.8 g/dl (12.0-15.5); MEAN CORPUSCULAR HEMOGLOBIN 32.3 pg (27.0-33.0); MEAN CORPUSCULAR HGB CONC 32.6 g/dl (32.0-36.5); MEAN CORPUSCULAR VOLUME 99.1 fl (80.0-96.0); PLATELET COUNT, AUTOMATED 130 10^3/uL (150-450); RED BLOOD COUNT 3.34 10^6/uL (4.00-5.40); WHITE BLOOD COUNT 6.8 10^3/uL (4.0-10.0)
[2020-03-05 06:44] LABS: INR 1.19; PROTHROMBIN TIME 14.8 SECONDS (11.8-14.0)
[2020-03-05 06:48] LABS: BLOOD UREA NITROGEN 9 MG/DL (7-18); CARBON DIOXIDE LEVEL 24 MEQ/L (21-32); CHLORIDE LEVEL 110 MEQ/L (98-107); CREATININE FOR GFR 0.79 MG/DL (0.55-1.30); GLOMERULAR FILTRATION RATE > 60.0 (>58); GLUCOSE, FASTING 98 MG/DL (70-100); POTASSIUM SERUM 3.4 MEQ/L (3.5-5.1); SODIUM LEVEL 142 MEQ/L (136-145)
[2020-03-05] MEDS ORDERED: POTASSIUM CHLORIDE 10 MEQ SR TABLET PO ONE (09:00)
[2020-03-05] MEDS ORDERED: MIRALAX *UNIT DOSE* 17GM PACKET PO SCH (09:00)
[2020-03-05] MEDS ORDERED: SENOKOT S TAB PO PRN (09:45)
[2020-03-05] MEDS: GABAPENTIN 300 MG CAP PO SCH (09:58)
[2020-03-05] MEDS: LACTOBACILLUS ACIDOPHILUS CAP (BACID) PO SCH (09:58)
[2020-03-05] MEDS: APIXABAN 5 MG TAB (ELIQUIS) PO SCH (09:58)
[2020-03-05] MEDS: FLUoxetine 20 MG CAP PO SCH (09:59)
[2020-03-05] MEDS ORDERED: ELIQ5TAB PO (10:43)
[2020-03-05] MEDS: PERCOCET 5MG/325MG TAB PO PRN (11:40)
[2020-03-05] MEDS ORDERED: PERCOCET PO (12:40)
--- NOTE | 2020-03-05 15:03 | DS.PDOC ---
Discharge Summary General Date of Admission Mar 03, 2020 at 08:24 Date of Discharge 03/05/2020 Discharge Summary PROCEDURES PERFORMED DURING STAY: Catheter directed thrombolysis for pulmonary embolism ADMITTING DIAGNOSES: 1. Saddle embolism 2. Crohn's disease 3. Anxiety. DISCHARGE DIAGNOSES: 1. Submassive, Saddle embolism, s/p catheter directed thrombolysis, on anticoagulation 2. Crohn's disease 3. Anxiety COMPLICATIONS/CHIEF COMPLAINT: Saddle Pulmonary Embolus. HISTORY OF PRESENT ILLNESS: Pt is a 44 yo female with PMH of Crohn's disease and active tobacco use presented to [facility] ER via private vehicle d/t exertional dyspnea and precordial/epigastric chest pain that started yesterday around lunch time. She reported that she never had this before, and that her exertional dyspnea and chest pain have been worsening. She said the pain is in sharp/tight precordial/epigastric region across but worse on left side, aggrav factor including palpation/pressure and inspiration. Denies dyspnea at rest. Pt reported nausea without vomiting, dizziness, and lightheadedness. Denies any fever, chills, or palpitation. It was noted that 2 weeks ago she had an injury of her left knee which is reported to be torn ACL with MCL strain and ripped medial meniscus without bone fracture. Pt reported prolonged immoblization d/t the injury but denies any pain or swelling in b/l UE or LE except for around the left knee where the injury was at. She had no hx of any clots including CVA, MO, PE, or DVT. She smokes 3 cig/day X 20 yrs. Pt was on depot povera since 2016. Pt also reported abdominal pain in all 4 quad but reported no bloody stool. HOSPITAL COURSE: CTA upon admission showed a large saddle embolism spanning b/left main pulmonary arteries extending to the upper and lower lobar pulmonary arteries; right heart strain; Cluster of small patchy opacities in the posterior segment of the RUL. Pt was given heparin bolus and started on heparin drip. IR consulted; s/p catheter directed thrombolysis with IR 03/04/2020, and was subsequently transitioned to heparin drip then oral anticoagulation with eliqu is. Pt's vitals have been stable on RA. On the day of discharge, pt reported improvement of chest pain, exertional dyspnea, and abdominal pain, denies any cough, bleeding or hematoma. It is noted that pt desires to be discharge. Pt was determined ready to be discharge with oral anticoagulations at home for 3 months. DISCHARGE MEDICATIONS: Please see below. ALLERGIES: Please see below. PHYSICAL EXAMINATION ON DISCHARGE: VITAL SIGNS: Please see below. GENERAL APPEARANCE: In minimal distress/discomfort, alert and awake. HEENT: Head normocephalic, atraumatic, mucosa moist and pink, mild swelling of face CARDIOVASCULAR: RRR, normal S1 and S2, no murmur RESPIRATORY: CTA b/l, good air entry b/l, no obvious rales or wheezing aus. ABDOMEN: Soft, no guarding, no abdominal pain. EXTREMITIES: No Niko's sign b/l. NEUROLOGICAL: Memory and cognitive function grossly stable PSYCHIATRIC: Mood appro to situation SKIN: mild ecchymosis on right side of neck and face LABORATORY DATA: Please see below. IMAGIN03/04/2020 CXR showed no acute cardiopulmonary process 03/04/2020 CTA showed improvement of pulmonary embolism; abnormal filling defect in the main pulmonary trunk and the main right and left pulmonary arteries markedly improved 03/03/2020 CTA showed a large saddle embolism spanning b/left main pulmonary arteries extending to the upper and lower lobar pulmonary arteries. Cluster of small patchy opacities in the posterior segment of the RUL. 5 mm RML calcified granuloma and calcified splenic granulomas. 03/03/2020 CXR showed mild right upper lobe infiltrate. PROGNOSIS: [Good] ACTIVITY: [As tolerated]. DIET: [Crohn's disease diet] DISPOSITION: Home, Self-Care. DISCHARGE PLAN AND INSTRUCTIONS: 1. Follow up with PCP in a week 2. Contact provider if symptoms worsen 3. Take medications as prescribed ITEMS TO FOLLOWUP ON ON OUTPATIENT: 1. Pulmonary embolism DISCHARGE CONDITION: [Improved]. TIME SPENT ON DISCHARGE: Greater than [33] minutes. Vital Signs/I&Os Vital Signs Date Time Temp Pulse Resp B/P (MAP) Pulse Ox O2 Delivery O2 Flow Rate FiO2 03/05/20 12:10 20 03/05/20 06:00 97.9 86 146/83 (104) 99 Room Air 03/03/20 20:00 3.0 I&O- Last 24 Hours up to 6 AM 03/05/20 06:00 Intake Total 2396 ml Output Total 1460 ml Balance 936 ml Laboratory Data Labs 24H Laboratory Tests 2 03/04/20 16:14: Activated Partial Thromboplast Time 31.5 03/04/20 23:17: Activated Partial Thromboplast Time 55.3H, Prothrombin Time 16.3H, Prothromb Time International Ratio 1.34 03/05/20 06:16: Prothrombin Time 14.8H, Prothromb Time International Ratio 1.19, Nucleated Red Blood Cells % (auto) 0.0, Anion Gap 8, Glomerular Filtration Rate > 60.0, Calcium Level 8.0L CBC/BMP Laboratory Tests 03/04/20 16:14 03/05/20 06:16 Discharge Medications Scheduled Apixaban (Eliquis) 5 Mg Tablet, 5 MG PO BID Take 10 mg BID for 6 days followed by 5 mg BID indefinitely. Ergocalciferol (Vitamin D2) (Vitamin D2) 50,000 Units Cap, 50,000 UNITS PO QWEEK, (Reported) SATURDAYS Fluoxetine Hcl (Fluoxetine HCl) 40 Mg Capsule, 40 MG PO DAILY, (Reported) Gabapentin (Gabapentin) 300 Mg Capsule, 300 MG PO TID, (Reported) Propranolol HCl (Propranolol HCl) 60 Mg Tablet, 60 MG PO BID, (Reported) Scheduled PRN Acyclovir (Acyclovir) 400 Mg Tablet, 400 MG PO TID PRN for COLD SORES, (Reported) Oxycodone/Acetaminophen (Oxycodone-Acetaminophen 5-325) 1 Each Tablet, 1 TAB PO Q8HP PRN for MILD/MODERATE PAIN (PS 1-7) Allergies Coded Allergies: Sulfa (Sulfonamide Antibiotics) (Verified Allergy, Unknown, rash, 03/03/20) sulfamethoxazole (Verified Allergy, Unknown, rash, 03/03/20) sulfisoxazole (Verified Allergy, Unknown, rash, 03/03/20) GME ATTESTATION GME ATTESTATION My faculty preceptor for this patient encounter was physically present during the encounter and was fully available. All aspects of the patient interview, examination, medical decision making process, and medical care plan development were reviewed and approved by the faculty preceptor. The faculty preceptor is aware and concurs with the plan as stated in the body of this note and will attest to such by his/her cosignature. LUZ CAMPUZANO DO Mar 05, 2020 15:03
--- NOTE | 2020-03-07 13:45 | REP ---
IR Pulmonary angiogram. IR Selective right pulmonary artery catheterization. IR Selective main and right pulmonary artery thrombolysis catheter placement. IR Saddle pulmonary embolus thrombolysis. IR Pulmonary thrombolysis catheter removal. IR Ultrasound guided right internal jugular vein access. IR Moderate sedation. Clinical Information: Saddle pulmonary embolus with tachycardia and troponin leak, indicative of heart strain. Physician: Dr Dumont.Procedure: The patient was advised of the benefits, risks, and alternatives of the procedure and informed consent was obtained.A time out was performed with verification of the patient's name, MRN, site of procedure, and type of procedure to be performed. The patient was positioned in the supine position on the angiographic table. The site was prepped and draped in the usual sterile fashion.Moderate sedation was performed by the physician including the presence of an independent trained observer who assisted in monitoring the patient's level of consciousness and physiological status. Following the administration of Fentanyl and Versed, the physician spent 60 minutes of continuous [id number] time with the patient. A braider setter radiograph reveals no gross abnormality. The right internal jugular vein was accessed with a micropuncture kit. A [employer] wire was advanced into the right ventricle. The micropuncture sheath was exchanged over the wire for an 8-Malay vascular sheath. A 5 F pigtail catheter was advanced over the wire and used to catheterize the pulmonary outflow tract, under fluoroscopy guidance. The pigtail catheter was then exchanged over the wire for a 4 F angled glide cath. The glide cath in conjunction with a wire was used to catheterize the left main pulmonary artery. An arteriogram was performed and this demonstrates filling defect within the left main pulmonary artery. The glide cath in conjunction with a wire was then used to catheterize the main pulmonary artery. A pulmonary angiogram was performed and this demonstrates filling defects in the main and bilateral main pulmonary arteries. The catheter in conjunction with a wire was used to catheterize the main right pulmonary artery. Injection of contrast confirmed location within the right lobar branch. The catheter was removed over the wire. An infusion catheter was then advanced over the wire, under fluoroscopy guidance and positioned within the main and right pulmonary arteries. The wire was removed and the inner stylet was secured under fluoroscopy guidance. The catheter was connected to TPA to drip at the 1 mg per hour. Heparin was administered through the sheath arm. Patient tolerated the procedure well and was transferred to ICU in stable condition. After 24 hours of thrombolysis, a CTA chest was performed. I personally reviewed the CTA performed 24 hours after catheter placement. This demonstrates interval resolution of saddle embolus with complete oriental orthodox of flow in the main and right main pulmonary arteries, lobar, segmental and subsegmental branches. Interval resolution of clot within the left main pulmonary artery. There is filling defect at the bifurcation of the left main pulmonary artery however there is flow beyond this into lobar, segmental and subsegmental branches. The catheter and sheath were then removed, pressure held and hemostasis achieved. A sterile dressing was applied to the site. Complications: None. Estimated blood loss: Less than 5 ml. Impression: 1. Pulmonary angiogram initially demonstrated saddle pulmonary embolus with filling defects in the main, right and left pulmonary arteries and beyond. 2. Successful thrombolysis catheter placement and 24 hours of thrombolysis with interval resolution of saddle embolus and restored flow in the bilateral main, lobar, segmental and subsegmental branches. 3. Successful removal of pulmonary thrombolysis catheter and vascular sheath. Patient to continue systemic anticoagulation. Thank you for this referral. Electronically Signed by Bertha Dumont MD 03/07/2020 01:43 P
== END 2020-03-05 12:47 | disposition home or self-care (01) | DRG 176 ==
LOC: M ED 05:35 → M ED INP 08:24 → ENRESERV 09:09 → M ICU 10:42 → M MSPAV 03-04 15:12
PROVIDERS: ADMIT Internal Medicine; ATTEND Internal Medicine
PROC: 02H Heart and Great Vessels, Insertion (ICD-10-PCS; principal; 2020-03-03 11:30)
DX: I26.92 Saddle embolus of pulmonary artery without acute cor pulmonale (principal); F41.9 Anxiety disorder, unspecified; K52.9 Noninfective gastroenteritis and colitis, unspecified; F17.200 Nicotine dependence, unspecified, uncomplicated; Z79.899 Other long term (current) drug therapy; Z88.2 Allergy status to sulfonamides; G43.909 Migraine, unspecified, not intractable, without status migrainosus; R91.1 Solitary pulmonary nodule; F12.90 Cannabis use, unspecified, uncomplicated; D69.6 Thrombocytopenia, unspecified

== ENCOUNTER 2020-03-07 18:56 | Observation (INO) | payer OTHER ==
[~2020-03-07] VITALS: Ht 162.6 cm; Wt 82.1 kg
[~2020-03-07 18:56] MED LIST changes: +ACYC400T PO; +ELIQ5TAB PO; +FLUO40CA PO; +GABA-843 PO; +PERCOCET PO; +PROP60TA18 PO; +VITA50005 PO
[2020-03-07 19:46] LABS: BASO # 0.1 10^3/uL (0.0-0.2); BASO % 0.6 % (0.0-1.0); EOS # 0.2 10^3/uL (0.0-0.5); EOS % 2.4 % (0.0-3.0); HEMATOCRIT 37.5 % (36.0-47.0); HEMOGLOBIN 12.6 g/dl (12.0-15.5); LYMPH # 2.8 10^3/uL (1.5-5.0); LYMPH % 35.5 % (24.0-44.0); MEAN CORPUSCULAR HEMOGLOBIN 32.6 pg (27.0-33.0); MEAN CORPUSCULAR HGB CONC 33.6 g/dl (32.0-36.5); MEAN CORPUSCULAR VOLUME 96.9 fl (80.0-96.0); MONO # 0.6 10^3/uL (0.0-0.8); MONO % 7.7 % (0.0-5.0); NEUTROPHILS # 4.3 10^3/uL (1.5-8.5); NEUTROPHILS % 53.6 % (36.0-66.0); PLATELET COUNT, AUTOMATED 211 10^3/uL (150-450); RED BLOOD COUNT 3.87 10^6/uL (4.00-5.40)
[2020-03-07] MEDS: MORPHINE 2 MG/ML 1ML VIAL (J2270) IV PRN ×2 (19:50→20:45)
[2020-03-07 19:58] LABS: INR 1.21
[2020-03-07 19:59] LABS: PARTIAL THROMBOPLASTIN TIME 28.6 SECONDS (25.0-38.4)
[2020-03-07 20:04] LABS: HCG, SERUM QUALITATIVE NEGATIVE (NEGATIVE)
[2020-03-07 20:20] LABS: ALBUMIN 3.8 GM/DL (3.2-5.2); ALT/SGPT 278 U/L (12-78); BILIRUBIN,DIRECT 0.1 MG/DL (0.0-0.2); BILIRUBIN,TOTAL 0.5 MG/DL (0.2-1.0); BLOOD UREA NITROGEN 12 MG/DL (7-18); CALCIUM LEVEL 9.5 MG/DL (8.5-10.1); CARBON DIOXIDE LEVEL 28 MEQ/L (21-32); CHLORIDE LEVEL 105 MEQ/L (98-107); CK-MB VALUE MASS 1.6 NG/ML (<3.6); CPK CREATINE PHOSPHOKINASE 102 U/L (26-192); CREATININE FOR GFR 0.96 MG/DL (0.55-1.30); FREE T4 1.17 NG/DL (0.76-1.46); GLOMERULAR FILTRATION RATE > 60.0 (>58); GLUCOSE, FASTING 100 MG/DL (70-100); MB/CK RELATIVE INDEX 1.57 (< OR =4); POTASSIUM SERUM 4.1 MEQ/L (3.5-5.1); SODIUM LEVEL 139 MEQ/L (136-145); TOTAL PROTEIN 7.3 GM/DL (6.4-8.2); TROPONIN I 0.04 NG/ML (< 0.10)
--- NOTE | 2020-03-07 21:12 | ECGEPIP ---
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
[2020-03-07] MEDS ORDERED: MORPHINE 4 MG/ML 1ML VIAL/SYRINGE (J2270) IV PRN (21:15)
[2020-03-07] MEDS ORDERED: ELIQ5TAB PO (21:16)
[2020-03-07] MEDS ORDERED: OXYC1TAB23 PO (21:18)
--- NOTE | 2020-03-07 21:21 | REPVR ---
PROCEDURE INFORMATION: Exam: US Left Breast Limited Exam date and time: 03/07/2020 8:54 PM Age: 44 years old Clinical indication: Other: Bruising TECHNIQUE: Imaging protocol: Limited ultrasound of Left breast with image documentation, including axilla when performed. Exam focused on the search and evaluation for mass. COMPARISON: No relevant prior studies available. FINDINGS: Breast: No distinct mass or cyst. Findings are consistent with hemorrhagic infiltration . IMPRESSION: No distinct mass or cyst is identified. Findings are consistent with hemorrhagic infiltration in the medial left breast. Electronically signed by: Marito Li On 03/07/2020 21:20:42 PM
[2020-03-07 21:30] LABS: LIPASE 90 U/L (73-393)
[2020-03-07] MEDS ORDERED: ACYCLOVIR 200 MG CAPSULE PO PRN (21:45)
[2020-03-07] MEDS ORDERED: PERCOCET 5MG/325MG TAB PO PRN (21:45)
[2020-03-07] MEDS ORDERED: ACETAMINOPHEN TAB 650MG DOSE (2X325MG) PO PRN (21:45)
--- NOTE | 2020-03-07 21:59 | HPEPDOC ---
General Date of Admission Mar 07, 2020 at 21:39 Date of Service: Mar 07, 2020 Chief Complaint The patient is a 44-year-old female Who presented to the hospital with left- sided chest wall pain History of Present Illness Patient is a 44-year-old female with a PMHx of Crohns disease, Chroni c constipation, Anxiety, Migraine headaches, Calcified R lung nodule, Recently was diagnosed with large saddle PE (2/2 immobility and control pills; s/p catheter directed thrombolysis on 03/04/[address] Dumont). Patient presented to the hospital with complaints of left-sided chest wall pain that started this morning. Patient reported that she is having some discomfort and worsening left-sided chest pain. Patient had taken Percocet that she was prescribed without any relief. She denies any shortness of breath or any changes in her baseline cough. Upon getting home patient had taken off her shirt and seen her left breast was ecchymotic and significantly tender. She denies nausea, vomiting, abdominal pain, diarrhea, or urinary discomfort, but she does report constipation for greater than a week. Patient reports her appetite is poor and denies any changes in her weight. Home Medications Scheduled Apixaban (Eliquis) 5 Mg Tablet, 10 MG PO BID, (Reported) TAKE 10 MG BID FOR 6 DAYS FOLLOWED BY 5 MG BID INDEFINITELY. FILLED 03/05/2020 Ergocalciferol (Vitamin D2) (Vitamin D2) 50,000 Units Cap, 50,000 UNITS PO QWEEK, (Reported) SATURDAYS Fluoxetine Hcl (Fluoxetine HCl) 40 Mg Capsule, 40 MG PO DAILY, (Reported) Gabapentin (Gabapentin) 300 Mg Capsule, 300 MG PO TID, (Reported) Propranolol HCl (Propranolol HCl) 60 Mg Tablet, 60 MG PO BID, (Reported) Scheduled PRN Acyclovir (Acyclovir) 400 Mg Tablet, 400 MG PO TID PRN for COLD SORES, (Reported) FOR 5 DAYS WITH OUTBREAK Oxycodone HCl/Acetaminophen (Oxycodone-Acetaminophen 5-325) 1 Each Tablet, 1 TAB PO Q8HP PRN for PAIN, (Reported) PRN MILD/MODERATE PAIN (PS 1-7) Allergies Coded Allergies: Sulfa (Sulfonamide Antibiotics) (Verified Allergy, Unknown, rash, 03/07/20) sulfamethoxazole (Verified Allergy, Unknown, rash, 03/07/20) sulfisoxazole (Verified Allergy, Unknown, rash, 03/07/20) Past Medical History Medical History Crohns disease, Chronic constipation, Anxiety, Migraine headaches, Calcified R lung nodule, Recently was diagnosed with large saddle PE (2/2 immobility and control pills; s/p catheter directed thrombolysis on 03/04/[address] Dumont). Surgical History Bilateral tympanostomy as a child Family History - Grandfather on maternal side with lung cancer Social History - Patient reports that she quit smoking, has stopped checking alcohol and using marijuana since her last admission - Denies recent travel or sick contacts - Lives with sister and boyfriend - Occupation; patient works at workplace on [employer] Review of Systems Other systems 10 point review of systems complete, all negative otherwise stated in HPI Vital Signs - Vitals: BP 153/83, HR 63, RR 18, Sat 99RA, Temp 98.2F - General: Lying in bed, Appears uncomfortable, Speaking in full sentences, AAOx3 - HEENT: NC, AT, PERRLA, EOMI - CVS: RRR, +S1S2 - Lungs: Fair air entry bilaterally, No wheezing / rales / rhonchi - Abdomen: Soft, Non-distended, Non-tender - Extremities: No lower extremity edema, No calf tenderness, Left leg in brace - Neuro: No focal motor or sensory deficit - Skin: No visible rashes Laboratory Data Labs 24H Laboratory Tests 2 03/07/20 19:30: Immature Granulocyte % (Auto) 0.2, Neutrophils (%) (Auto) 53.6, Lymphocytes (%) (Auto) 35.5, Monocytes (%) (Auto) 7.7H, Eosinophils (%) (Auto) 2.4, Basophils (%) (Auto) 0.6, Neutrophils # (Auto) 4.3, Lymphocytes # (Auto) 2.8, Monocytes # (Auto) 0.6, Eosinophils # (Auto) 0.2, Basophils # (Auto) 0.1, Nucleated Red Blood Cells % (auto) 0.0, Prothrombin Time 15.0H, Prothromb Time International Ratio 1.21, Activated Partial Thromboplast Time 28.6, Anion Gap 6L, Glomerular Filtration Rate > 60.0, Calcium Level 9.5#, Total Bilirubin 0.5, Direct Bilirubin 0.1, Aspartate Amino Transf (AST/SGOT) 277H, Alanine Aminotransferase (ALT/SGPT) 278H, Alkaline Phosphatase 102, Total Creatine Kinase 102, Creatine Kinase MB 1.6, Creatine Kinase MB Relative Index 1.57, Troponin I 0.04, Total Protein 7.3, Albumin 3.8, Albumin/Globulin Ratio 1.1L, Lipase 90, Thyroid Stimulating Hormone (TSH) 3.040, Free Thyroxine 1.17, Human Chorionic Gonadotropin, Qual NEGATIVE CBC/BMP Laboratory Tests 03/07/20 19:30 Plan / VTE VTE Prophylaxis Ordered?: Yes Plan Plan Left breast ecchymosis - likely 2/2 anticoagulation therapy, no evidence of fluid collection - Patient presented to the hospital with worsening left-sided chest wall pain - Recent history of starting anticoagulation for pulmonary embolism - Patient is hemodynamically stable and afebrile - Hemoglobin appears to be stable compared to prior admission - Breast US 03/07: No distinct mass or cyst is identified. Findings are consistent with hemorrhagic infiltration in the medial left breast. - Case discussed with ER provider and Dr. Garcias; will be evaluating patient in the AM - Discussed risks and benefits of anticoagulation therapy with patient; at this point patient agrees that we will continue with Eliquis - Will continue with pain control with Morphine and Percocet PRN - Dr. Garcias will be consulted for evaluation Massive Saddle PE - suspected to be 2/2 immobility and control pills - s/p catheter directed thrombolysis on 03/04/[address] Dumont - Patient has been on Eliquis since that point; will continue with regimen Crohns disease - No evidence of exacerbation - Last exacerbation was 3-4 years ago - Patient reports she uses a modified diet control Chronic constipation - Last bowel movement was greater than one week ago - Will start lactulose Anxiety - c/w Fluoxetine Migraine headaches - Patient takes prophylaxis with Propranolol Calcified R lung nodule - Follows with outpatient provider GERD - Patient has not been on any therapy - Will start Protonix DVT prophylaxis - Will c/w full anticoagulation with RAUL Winter MD Mar 07, 2020 21:59
[2020-03-07 23:00] VITALS: BP 181/84
[2020-03-07] MEDS: LACTULOSE 20 GM/30 ML SYRUP UD PO SCH (23:12)
[2020-03-07 23:15] VITALS: BP 162/98
[2020-03-07] MEDS: PROPRANOLOL 20 MG TAB PO SCH (23:18)
[2020-03-07] MEDS: APIXABAN 5 MG TAB (ELIQUIS) PO SCH (23:18)
[2020-03-07] MEDS: GABAPENTIN 300 MG CAP PO SCH (23:19)
[2020-03-07] MEDS: PERCOCET 5MG/325MG TAB PO PRN (23:19)
--- NOTE | 2020-03-08 02:04 | REP ---
Clinical: Chest pain . Comparison: 03/03/2020 . Findings: The mediastinum and cardiac silhouette are stable and within normal limits for portable technique. The lung ruggiero are clear without acute consolidation, effusion, or pneumothorax. Skeletal structures are intact. Impression: No acute cardiopulmonary process appreciated. Electronically Signed by Jair Roca MD 03/08/2020 01:55 A
[2020-03-08 04:00] VITALS: BP 132/75
[2020-03-08 05:15] LABS: BASO % 0.3 % (0.0-1.0); EOS # 0.2 10^3/uL (0.0-0.5); EOS % 2.9 % (0.0-3.0); HEMATOCRIT 32.1 % (36.0-47.0); LYMPH % 47.8 % (24.0-44.0); MEAN CORPUSCULAR HEMOGLOBIN 31.7 pg (27.0-33.0); MEAN CORPUSCULAR HGB CONC 32.7 g/dl (32.0-36.5); MONO # 0.6 10^3/uL (0.0-0.8); MONO % 9.9 % (0.0-5.0); NEUTROPHILS # 2.4 10^3/uL (1.5-8.5); NEUTROPHILS % 38.9 % (36.0-66.0); PLATELET COUNT, AUTOMATED 159 10^3/uL (150-450); RED BLOOD COUNT 3.31 10^6/uL (4.00-5.40); WHITE BLOOD COUNT 6.2 10^3/uL (4.0-10.0)
[2020-03-08] MEDS: LACTULOSE 20 GM/30 ML SYRUP UD PO SCH ×4 (05:15→23:19)
[2020-03-08 05:21] LABS: HEMOGLOBIN 10.5 g/dl (12.0-15.5)
[2020-03-08 05:47] LABS: BLOOD UREA NITROGEN 10 MG/DL (7-18); CALCIUM LEVEL 8.2 MG/DL (8.5-10.1); CARBON DIOXIDE LEVEL 28 MEQ/L (21-32); CHLORIDE LEVEL 108 MEQ/L (98-107); GLOMERULAR FILTRATION RATE > 60.0 (>58); GLUCOSE, FASTING 90 MG/DL (70-100); MAGNESIUM LEVEL 2.1 MG/DL (1.8-2.4); POTASSIUM SERUM 3.7 MEQ/L (3.5-5.1); SODIUM LEVEL 142 MEQ/L (136-145)
[2020-03-08 08:16] VITALS: BP 133/78
[2020-03-08] MEDS: GABAPENTIN 300 MG CAP PO SCH ×3 (08:48→20:38)
[2020-03-08] MEDS: APIXABAN 5 MG TAB (ELIQUIS) PO SCH ×2 (08:48→20:38)
[2020-03-08] MEDS: PROPRANOLOL 20 MG TAB PO SCH ×2 (08:48→20:38)
[2020-03-08] MEDS: PANTOPRAZOLE 40MG TAB (PROTONIX) PO SCH (08:48)
[2020-03-08] MEDS: FLUoxetine 20 MG CAP PO SCH (08:48)
[2020-03-08] MEDS: PERCOCET 5MG/325MG TAB PO PRN ×3 (08:58→23:27)
[2020-03-08] MEDS ORDERED: MORPHINE 2 MG/ML 1ML VIAL (J2270) IV ONE (09:30)
[2020-03-08] MEDS ORDERED: ISOVUE-370 76% 100ML VIAL As Ordered ONE (09:34)
--- NOTE | 2020-03-08 10:31 | REP ---
CT ANGIOGRAM CHEST: TECHNIQUE: Axial contrast-enhanced images from the thoracic inlet to the upper abdomen using 100 mL Isovue-370 intravenous contrast material with multiplanar reformations. COMPARISON: 03/04/2020 There is again mild improvement of pulmonary emboli involving the left pulmonary trunk and arterial branches supplying the left lower lobe. There is still mild residual thrombus present at these locations. No new pulmonary emboli are seen. No thoracic aortic aneurysm or dissection is seen. The heart is normal in size. No adenopathy is seen. There are calcified right hilar lymph nodes and calcified granulomas in the right lung. There is a calcified granuloma in the spleen. There are mild bibasilar atelectatic changes in the lungs. IMPRESSION: Continued mild improvement of left pulmonary emboli as discussed in detail above. Electronically Signed by Armani Ann MD 03/09/2020 10:10 P
[2020-03-08] MEDS: MORPHINE 4 MG/ML 1ML VIAL/SYRINGE (J2270) IV PRN ×2 (12:09→20:37)
[2020-03-08 15:35] VITALS: BP 114/74
--- NOTE | 2020-03-08 16:54 | IPN ---
DATE: 03/08/2020 The patient complains of severe pain 8/10 at the left breast, and now also complains of pain under the right breast across her chest without any radiation to the back. The patient denies shortness of breath, dizziness, or lightheadedness. She remains 97% on room air and Eliquis 5 mg twice a day. Ultrasound of the breast showed a left breast hemorrhagic infiltration in the medial aspect of the left breast. Telemetry was unremarkable, saturating well. Pain decreases to 6/10 with oral Percocet and IV morphine. Vital Signs: Temperature 97.5, pulse 72, respiratory rate 18, blood pressure 133/70, 97% on room air. Generally awake, alert, oriented to person, place and time, answering questions appropriately. No conversation dyspnea. Trachea is midline. No stridor. Lungs are clear to auscultation. No wheezing, rales, or rhonchi. Heart: S1, S2, sinus rhythm. Abdomen soft, nontender, nondistended. Positive bowel sounds. Extremities: No cyanosis, clubbing, or pitting edema. Skin: The patient has significant ecchymosis along the left breast on the medial aspect and some under the right breast. LABORATORY DATA: White count 6.2, hemoglobin 10, hematocrit 32, platelet count of 159. Sodium 142, potassium 3.7, bicarbonate 108, chloride 28, BUN 10, creatinine 0.8, glucose of 90. ASSESSMENT AND PLAN: This is a 44-year-old female with history of saddle embolus status post catheter directed thrombolysis by Dr. Dumont on 03/04/2020, was immobile with control pills prior to admission, discharged home on Eliquis, presents with left-sided chest wall pain, found to have left breast ecchymosis without any signs of trauma. The patient says she went to work, did not do very much, took a shower, as she lifted her shirt up she then developed severe pain. She found ecchymosis along the left medial breast. Found on ultrasound to have an infiltrating hemorrhage. IMPRESSION: 1. Hemorrhage into the left medial aspect of the breast in the setting of anticoagulation with Eliquis 5 mg twice a day due to saddle embolus. The patient is currently on IV morphine and oral Percocet. Dr. Garcias has been consulted, breast surgeon, and recommended an Mykel bandage. The patient is saturating well otherwise. 2. Saddle embolus secondary to use of control pill and inability on chronic Eliquis status post catheter directed thrombolysis on 03/04/[address] Dumont. Despite bleeding the patient is to continue on Eliquis. 3. Acute blood loss secondary to hemorrhagic infiltration in the medial left breast. Continued on Eliquis. 4. Crohn disease. The patient is stable. Currently is not having any issues. No bloody diarrhea, abdominal pain. 5. Chronic constipation. The patient has been on lactulose with no bowel movement. 6. Anxiety. On fluoxetine. 7. Calcified lung nodule. Will have patient followup. 8. Reflux. On proton pump inhibitor (PPI). 9. Migraine headaches. On propranolol for maintenance and migraine prophylaxis. DISPOSITION: Await recommendations from Dr. Garcias. Monitor hemoglobin/hematocrit (H/H) and obtain CT chest today due to complaints of pain across the chest. If creatinine is normal, obtain CT chest with IV contrast. Physical therapy (PT) home safety evaluation on discharge in the morning. ANNA
[2020-03-08 18:25] LABS: HEMATOCRIT 33.3 % (36.0-47.0); HEMOGLOBIN 10.7 g/dl (12.0-15.5)
[2020-03-08 22:00] VITALS: BP 128/87
--- NOTE | 2020-03-08 22:23 | CR.PDOC ---
Plastic Surgery Consultation Date of Consultation 03/08/20 History and Physical REASON FOR CONSULTATION: left breast hematoma HISTORY OF PRESENT ILLNESS: Ms. Johnson is a 44 year old woman, with Past Medical History of Crohn's disease (not on maintenance meds), GERD, left knee problems who was recently diagnosed with saddle PE, started on anticoagulation and presented to the emergency department yesterday with left breast hematoma. Patient was recently discharged from the hospital after she was treated for saddle PE and was started on Eliquis. Patient states that initially when she presented with pulmonary embolus she was short of breath but currently shortness of breath improved and she is stable on room air. She was feeling well on Saturday. On Saturday she went to work without exertion. She noted that her left breast has substantial bruising and is tender. Patient denies specific trauma to the left breast. Patient is using crutches right now to move around as she has left knee problems and was waiting for surgery to address that issue in the near future. She presented to the emergency room in the evening. Ultrasound of the left breast was done and radiology report showed : No distinct mass or cyst is identified. Findings are consistent with hemorrhagic infiltration in the medial left breast. Patient was admitted to the floor for evaluation. She also had previous right internal jugular central line placed during previous admission and she has some bruising in this area as well after removal of the catheter. Patient states that she had to normal mammograms in the past. Patient does not have significant family history of breast or ovarian cancer. She does have family history of other cancers : grandfather with lung ca, dx in 60s/70s Of note, patient was previous on Depo shots and she was a smoker. Menarche was at 15, last menstrual period is unknown due to Deppo shots Breast fed for 17 months No previous genetic testing Not Ashkenazi [employer] heritage Patient never had radiation or chemotherapy. PAST MEDICAL HISTORY: 1. Saddle PE, GERD, Crohn's, bilateral knee problems, smoker, PAST SURGICAL HISTORY: INCLUDES: 1. see the chart ALLERGIES: Please see below. FAMILY HISTORY: see above HOME MEDICATIONS: Please see below. REVIEW OF SYSTEMS: GENERAL: No fevers HEENT: No sore throat. NECK: Had left internal jugular central line inserted. Previous admission and now she has a bruise in that area CARDIOVASCULAR: No chest pain. MUSCULOSKELETAL: Pain in the left knee. SKIN: Develop extensive bruising at the site of the left breast. HEMATOLOGY/ONCOLOGY: Recently developed saddle PE. PULMONARY: Previously was short of breath. Now it improved. GASTROINTESTINAL: Patient has Crohn's disease not on maintenance medications, last C scope last year. ENDOCRINE: No endocrine issues PHYSICAL EXAMINATION: VITALS SIGNS: Please see below. GENERAL APPEARANCE:Patient seen, laying in bed, awake, alert, and oriented. Comfortable, in no acute distress. SKIN: Warm and moist. BREAST: Right is soft, non-tender. There is mild bruising on the medial aspect of the right breast. Left breast has extensive ecchymosis involving majority of central portion of the breast. There is no specific firmness of the tissue which is reassuring. No specific hematoma extension present. Left breast is tender to palpation. Nipples are everted there is no nipple discharge. There is no palpable axillary lymphadenopathy bilaterally. HEENT: Normocephalic, atraumatic. NECK: There is a bruise at right lower aspect of the neck. LUNGS: Breathing comfortably on room air HEART: No tachycardia ABDOMEN: Abdomen is soft, EXTREMITIES: Left knee brace in place LABORATORY DATA: Please see below. IMAGING STUDIES: cc: [~ rep ct ivnm] Service Date&Time: 03/07/202053 EXAMINATION REQUESTED: BREAST U/S UNILATERAL LIMITED LEFT REASON FOR PATIENT VISIT: CHEST PAIN REASON FOR EXAMINATION: bruising PROCEDURE INFORMATION: Exam: US Left Breast Limited Exam date and time: 03/07/2020 8:54 PM Age: 44 years old Clinical indication: Other: Bruising TECHNIQUE: Imaging protocol: Limited ultrasound of Left breast with image documentation, including axilla when performed. Exam focused on the search and evaluation for mass. COMPARISON: No relevant prior studies available. FINDINGS: Breast: No distinct mass or cyst. Findings are consistent with hemorrhagic infiltration . IMPRESSION: No distinct mass or cyst is identified. Findings are consistent with hemorrhagic infiltration in the medial left breast. Electronically signed by: Marito Li On 03/07/2020 21:20:42 PM IMPRESSION: 44 -year-old female with large saddle pulmonary embolism on therapeutic anticoagulation with Eliquis developed left breast extensive bruising PLANS: - Anticoagulation per medical team - Keep patient in the Mykel wrap over left breast and medial aspect of the right breast - Avoid activities with left upper extremity including moving with crutches as this can exacerbate possible pectoralis muscle bleeding - Will monitor the extent of ecchymosis. No immediate surgical intervention is warranted at this time - I'll continue to follow. After discharge patient can follow-up with michael olson in theoffice . Thank you for allowing me to participate in care of this patient Vital Signs Vital Signs Date Time Temp Pulse Resp B/P (MAP) Pulse Ox O2 Delivery O2 Flow Rate FiO2 03/08/20 20:47 16 03/08/20 20:38 68 128/87 03/08/20 15:35 98.3 98 Room Air Laboratory Data Labs 24H Laboratory Tests 2 03/08/20 05:03: Immature Granulocyte % (Auto) 0.2, Neutrophils (%) (Auto) 38.9, Lymphocytes (%) (Auto) 47.8H, Monocytes (%) (Auto) 9.9H, Eosinophils (%) (Auto) 2.9, Basophils (%) (Auto) 0.3, Neutrophils # (Auto) 2.4, Lymphocytes # (Auto) 3.0, Monocytes # (Auto) 0.6, Eosinophils # (Auto) 0.2, Basophils # (Auto) 0.0, Nucleated Red Blood Cells % (auto) 0.0, Anion Gap 6L, Glomerular Filtration Rate > 60.0, Calcium Level 8.2L, Magnesium Level 2.1 CBC/BMP Laboratory Tests 03/08/20 05:03 03/08/20 18:00 Home Medications Scheduled Apixaban (Eliquis) 5 Mg Tablet, 10 MG PO BID, (Reported) TAKE 10 MG BID FOR 6 DAYS FOLLOWED BY 5 MG BID INDEFINITELY. FILLED 03/05/2020 Ergocalciferol (Vitamin D2) (Vitamin D2) 50,000 Units Cap, 50,000 UNITS PO QWEEK, (Reported) SATURDAYS Fluoxetine Hcl (Fluoxetine HCl) 40 Mg Capsule, 40 MG PO DAILY, (Reported) Gabapentin (Gabapentin) 300 Mg Capsule, 300 MG PO TID, (Reported) Propranolol HCl (Propranolol HCl) 60 Mg Tablet, 60 MG PO BID, (Reported) Scheduled PRN Acyclovir (Acyclovir) 400 Mg Tablet, 400 MG PO TID PRN for COLD SORES, (Reported) FOR 5 DAYS WITH OUTBREAK Oxycodone HCl/Acetaminophen (Oxycodone-Acetaminophen 5-325) 1 Each Tablet, 1 TAB PO Q8HP PRN for PAIN, (Reported) PRN MILD/MODERATE PAIN (PS 1-7) Allergies Coded Allergies: Sulfa (Sulfonamide Antibiotics) (Verified Allergy, Unknown, rash, 03/07/20) sulfamethoxazole (Verified Allergy, Unknown, rash, 03/07/20) sulfisoxazole (Verified Allergy, Unknown, rash, 03/07/20) EDILBERTO SOTO DO Mar 08, 2020 22:23
[2020-03-09 00:31] LABS: HEMATOCRIT 35.4 % (36.0-47.0); HEMOGLOBIN 11.4 g/dl (12.0-15.5)
[2020-03-09 05:31] LABS: BASO % 0.5 % (0.0-1.0); EOS # 0.2 10^3/uL (0.0-0.5); EOS % 2.7 % (0.0-3.0); HEMATOCRIT 35.1 % (36.0-47.0); HEMOGLOBIN 11.4 g/dl (12.0-15.5); LYMPH % 48.2 % (24.0-44.0); MEAN CORPUSCULAR HEMOGLOBIN 31.6 pg (27.0-33.0); MEAN CORPUSCULAR HGB CONC 32.5 g/dl (32.0-36.5); MEAN CORPUSCULAR VOLUME 97.2 fl (80.0-96.0); MONO # 0.5 10^3/uL (0.0-0.8); MONO % 8.5 % (0.0-5.0); NEUTROPHILS # 2.5 10^3/uL (1.5-8.5); NEUTROPHILS % 39.9 % (36.0-66.0); PLATELET COUNT, AUTOMATED 172 10^3/uL (150-450); RED BLOOD COUNT 3.61 10^6/uL (4.00-5.40); WHITE BLOOD COUNT 6.2 10^3/uL (4.0-10.0)
[2020-03-09] MEDS: PERCOCET 5MG/325MG TAB PO PRN (05:36)
[2020-03-09] MEDS: LACTULOSE 20 GM/30 ML SYRUP UD PO SCH (05:37)
[2020-03-09 05:52] LABS: BLOOD UREA NITROGEN 9 MG/DL (7-18); CALCIUM LEVEL 8.4 MG/DL (8.5-10.1); CARBON DIOXIDE LEVEL 26 MEQ/L (21-32); CHLORIDE LEVEL 108 MEQ/L (98-107); GLOMERULAR FILTRATION RATE > 60.0 (>58); GLUCOSE, FASTING 96 MG/DL (70-100); MAGNESIUM LEVEL 2.1 MG/DL (1.8-2.4); SODIUM LEVEL 141 MEQ/L (136-145)
[2020-03-09 06:00] VITALS: BP 125/82
[2020-03-09 08:25] VITALS: BP 125/82
[2020-03-09] MEDS: PROPRANOLOL 20 MG TAB PO SCH (08:25)
[2020-03-09] MEDS: PANTOPRAZOLE 40MG TAB (PROTONIX) PO SCH (08:25)
[2020-03-09] MEDS: APIXABAN 5 MG TAB (ELIQUIS) PO SCH (08:25)
[2020-03-09] MEDS: FLUoxetine 20 MG CAP PO SCH (08:25)
[2020-03-09] MEDS: GABAPENTIN 300 MG CAP PO SCH (08:25)
[2020-03-09] MEDS ORDERED: DOCUSATE SODIUM 100 MG CAP PO SCH (09:00)
--- NOTE | 2020-03-09 10:54 | IPNPDOC ---
Subjective General Date Seen: Mar 09, 2020 Subject Chief Complaint/History The patient is a 44-year-old female admitted with a reason for visit of Breast Pain and extensive bruising. She is on anticoagulation for her saddle PE. Yesterday would place Mykel wrap on her to compress the area of bleeding. Patient had some pain due to Mykel wrap compression however the area of ecchymosis does not seem to extend. There is no gross hematoma present. Current Medications Current Medications Current Medications Medications (Trade) Dose Ordered Sig/Erick Route PRN Reason Start Time Stop Time Status Last Admin Dose Admin Acetaminophen (Tylenol Tab) 650 mg Q4H PRN PO PAIN OR FEVER 03/07/20 21:45 Acyclovir (Zovirax) 400 mg TID PRN PO COLD SORES 03/07/20 21:45 Apixaban (Eliquis) 5 mg BID PO 03/12/20 21:00 Apixaban (Eliquis) 10 mg BID PO 03/07/20 21:00 03/12/20 09:01 03/09/20 08:25 Docusate Sodium (Colace) 100 mg DAILY PO 03/09/20 09:00 Fluoxetine HCl (PROzac) 40 mg DAILY PO 03/08/20 09:00 03/09/20 08:25 Gabapentin (Neurontin) 300 mg TID PO 03/07/20 21:00 03/09/20 08:25 Home Med (Med Rec Complete!) ASDIRECTED XX 03/07/20 21:30 03/07/20 21:20 DC Lactulose (Cephulac) 30 ml Q6H PO 03/08/20 00:00 03/09/20 09:00 DC 03/09/20 05:37 Morphine Sulfate (Morphine Sulfate Inj) 2 mg Q30M PRN IV MODERATE PAIN (PS 5-7) 03/07/20 19:30 03/07/20 20:45 DC 03/07/20 20:45 Morphine Sulfate (Morphine Sulfate Inj) 3 mg Q8HP PRN IV SEVERE PAIN (PS 8-10) 03/07/20 21:45 03/08/20 20:37 Morphine Sulfate (Morphine Sulfate Inj) 4 mg Q30M PRN IV SEVERE PAIN (PS 8-10) 03/07/20 21:15 Oxycodone/ Acetaminophen (Percocet 5mg/ 325mg Tablet) 1 tab Q6HP PRN PO MILD/MODERATE PAIN (PS 1-7) 03/07/20 21:45 Oxycodone/ Acetaminophen (Percocet 5mg/ 325mg Tablet) 2 tab Q6HP PRN PO SEVERE PAIN (PS 8-10) 03/07/20 21:45 03/09/20 05:36 Pantoprazole Sodium (Protonix) 40 mg DAILY PO 03/08/20 09:00 03/09/20 08:25 Propranolol HCl (Inderal) 60 mg BID PO 03/07/20 21:00 03/09/20 08:25 Allergies Coded Allergies: Sulfa (Sulfonamide Antibiotics) (Verified Allergy, Unknown, rash, 03/07/20) sulfamethoxazole (Verified Allergy, Unknown, rash, 03/07/20) sulfisoxazole (Verified Allergy, Unknown, rash, 03/07/20) Objective Physical Examination Examination GENERAL APPEARANCE: Patient seen, laying in bed. Alert and oriented. Not in acute distress. SKIN: There is ecchymosis over left breast extending to medial aspect of the right breast. There is ecchymosis of the right neck. BREAST: Right and left breast are soft. Left one is mildly argueta in the upper aspect. There is extensive ecchymosis of the inferior aspect of the left breast with some extension toward middle aspect of the right breast. There is no gross hematoma on exam. HEENT: Normocephalic NECK: There is ecchymosis at the right lower neck from previous central line catheter . LUNGS: Breathing comfortably on room air. Not on oxygen. HEART: Not tachycardic. ABDOMEN: Abdomen is soft EXTREMITIES: Left knee in a brace. Vital Signs Vital Signs Date Time Temp Pulse Resp B/P (MAP) Pulse Ox O2 Delivery O2 Flow Rate FiO2 03/09/20 08:25 70 125/82 03/09/20 06:06 16 03/09/20 06:00 98.4 100 Room Air I&Os I&O- Last 24 Hours up to 6 AM 03/09/20 05:59 Intake Total 820 ml Output Total 400 ml Balance 420 ml Laboratory Data Labs 24H Laboratory Tests 2 03/09/20 05:19: Immature Granulocyte % (Auto) 0.2, Neutrophils (%) (Auto) 39.9, Lymphocytes (%) (Auto) 48.2H, Monocytes (%) (Auto) 8.5H, Eosinophils (%) (Auto) 2.7, Basophils (%) (Auto) 0.5, Neutrophils # (Auto) 2.5, Lymphocytes # (Auto) 3.0, Monocytes # (Auto) 0.5, Eosinophils # (Auto) 0.2, Basophils # (Auto) 0.0, Nucleated Red Blood Cells % (auto) 0.0, Anion Gap 7L, Glomerular Filtration Rate > 60.0, Calcium Level 8.4L, Magnesium Level 2.1 CBC/BMP Laboratory Tests 03/08/20 18:00 03/08/20 23:47 03/09/20 05:19 Impression 44-year-old female with saddle PE on anticoagulation who developed left breast ecchymosis and swelling associated with pain. Anticoagulation management their primary team Keep the Mykel wrap compression to decrease extent of bleeding, area appears to be stable No acute surgical intervention warranted at this time I would like to the patient to follow-up at my office in about a week from discharge Thank you for allowing me to participate in care of this patient Plan / VTE VTE Prophylaxis Ordered?: Yes EDILBERTO SOTO DO Mar 09, 2020 10:54
--- NOTE | 2020-03-12 13:01 | DSES ---
DATE OF ADMISSION: 03/07/2020 DATE OF DISCHARGE: 03/09/2020 OPERATIONS AGENT: Dr. Garcias, breast surgeon. PRIMARY DISCHARGE DIAGNOSES: 1. Saddle embolus, on chronic anticoagulation. 2. Left breast hemorrhagic infiltration with ecchymosis. 3. Acute blood loss anemia secondary to hemorrhage into the left breast with no history of trauma. 4. Obesity, body mass index of 31.1. 5. Abnormal liver function tests. 6. History of Crohn's disease. 7. Chronic constipation. 8. Anxiety. 9. Calcified lung nodule. 10. Reflux. 11. Migraine headaches. DISCHARGE MEDICATIONS: - acyclovir 400 three times a day as needed - [id number] mg twice a day - vitamin D 50,000 units weekly - fluoxetine 40 daily - gabapentin 300 three times a day - Percocet one tablet every 8 as needed - propranolol 60 mg twice a day HOSPITAL COURSE: This is a 44-year-old female with recent saddle embolus, status post catheter-directed thrombolysis by Dr. Dumont on 03/04/2020. Was immobile with control pills prior to admission. Was discharged home on Eliquis. Presented to the emergency room with pleuritic chest pain, left-sided chest wall pain. Found to have left breast ecchymosis without any signs of recent traumatic injury. Patient said that she went to work. Did not do very much. She then came home, took a shower, and she lifted her shirt developed severe pain and found ecchymosis along the left breast. On ultrasound she was found to have infiltrating hemorrhage and anemia with hemoglobin decreasing to 11. She was seen by Dr. Garcias , breast surgeon, who recommended Mykel wraps and a binder and to followup with her as outpatient. She is continued on Eliquis twice a day as outpatient and did not require blood transfusion. Patient's pain was controlled on Percocet as needed. She passed home safety evaluation. She was instructed not to use her crutches at this time and to be re-evaluated as outpatient. PHYSICAL EXAMINATION ON DISCHARGE: Temperature 98.4, pulse 70, respiratory rate 19, blood pressure 126/82, 100% on room air. GENERAL: Patient is awake, alert, oriented to person, place, and time, answering questions appropriately. No pallor, icterus, jaundice. No jugular venous distention (JVD), thyromegaly, cervical lymphadenopathy. LUNGS: Clear to auscultation. No wheezes, rales, or rhonchi. Air entry is equal bilaterally. Patient has notable ecchymosis along the medial aspect of the left breast into the tail, slightly argueta in the left than the right breast with extension into the mid sternum and medial aspect of the right breast with some tenderness. Right lower neck has ecchymosis from previous central line placement. EXTREMITIES: Left knee is in a brace. LABORATORY DATA: White count 6.2, hemoglobin 11.4, hematocrit 35, platelet count 172. Sodium 141, potassium 4, chloride 108, bicarbonate 26, BUN 9, creatinine 0.8, glucose 96. CT chest: Continued mild improvement of left pulmonary emboli, involving left pulmonary trunk, arterial branches supplying left lower lobe. There is still mild residual thrombus in these locations. No new pulmonary embolism (PE). Breast ultrasound: Infiltrating hematoma long the medial aspect of the left breast. TIME SPENT ON DISCHARGE: 30 minutes. MTDD
[2020-03-12] MEDS ORDERED: APIXABAN 5 MG TAB (ELIQUIS) PO SCH (21:00)
== END 2020-03-09 11:15 | disposition home or self-care (01) ==
LOC: M ED 18:56 → M ED INP 21:39 → ENRESERV 22:18 → M PCU 23:00 → M MS5PR 03-08 15:20
PROVIDERS: ADMIT Internal Medicine; ATTEND General Practice
DX: R23.3 Spontaneous ecchymoses (principal); Z79.01 Long term (current) use of anticoagulants; N64.4 Mastodynia; I26.92 Saddle embolus of pulmonary artery without acute cor pulmonale; K50.90 Crohn's disease, unspecified, without complications; K59.00 Constipation, unspecified; K21.9 Gastro-esophageal reflux disease without esophagitis; R91.1 Solitary pulmonary nodule; F41.9 Anxiety disorder, unspecified; G43.909 Migraine, unspecified, not intractable, without status migrainosus; Z79.899 Other long term (current) drug therapy; Z87.891 Personal history of nicotine dependence; Z88.2 Allergy status to sulfonamides
CPT/HCPCS: 36415; 71045; 71275; 76642; 80048; 80076; 82550; 82553; 83690; 83735; 84439; 84443; 84484; 84703; 85014; 85018; 85025; 85610; 85730; 86850; 86900; 86901; 93005; 93041; 94760; 96374; 96376; 97161; 99285; J2270; Q9967

== ENCOUNTER → 2020-03-10 | Outpatient (REF) | payer OTHER ==
[~2020-03-10] MED LIST changes: +OXYC1TAB23 PO; +PERC5TAB12 PO
[2020-03-10 13:27] LABS: BASO # 0.1 10^3/uL (0.0-0.2); BASO % 0.8 % (0.0-1.0); EOS # 0.1 10^3/uL (0.0-0.5); EOS % 1.6 % (0.0-3.0); HEMATOCRIT 43.2 % (36.0-47.0); LYMPH # 2.2 10^3/uL (1.5-5.0); LYMPH % 36.6 % (24.0-44.0); MEAN CORPUSCULAR HEMOGLOBIN 31.3 pg (27.0-33.0); MEAN CORPUSCULAR HGB CONC 32.6 g/dl (32.0-36.5); MEAN CORPUSCULAR VOLUME 95.8 fl (80.0-96.0); MONO # 0.5 10^3/uL (0.0-0.8); MONO % 7.7 % (0.0-5.0); NEUTROPHILS # 3.2 10^3/uL (1.5-8.5); PLATELET COUNT, AUTOMATED 273 10^3/uL (150-450); RED BLOOD COUNT 4.51 10^6/uL (4.00-5.40); WHITE BLOOD COUNT 6.1 10^3/uL (4.0-10.0)
[2020-03-10 13:29] LABS: APPEARANCE, URINE CLEAR (CLEAR); BACTERIA, URINE AUTO 1+ (NEGATIVE); BILIRUBIN, URINE AUTO NEGATIVE (NEGATIVE); BLOOD, URINE BLOOD NEGATIVE (NEGATIVE); COLOR, URINE STRAW (YELLOW); GLUCOSE, URINE (UA) AUTO NEGATIVE (NEGATIVE); KETONE, URINE AUTO NEGATIVE (NEGATIVE); LEUKOCYTE ESTERASE, URINE AUTO NEGATIVE (NEGATIVE); NITRITE, URINE AUTO NEGATIVE (NEGATIVE); PROTEIN, URINE AUTO NEGATIVE (NEGATIVE); RBC, URINE AUTO 0 /HPF (0-3); SPECIFIC GRAVITY URINE AUTO 1.005 (1.002-1.035); SQUAMOUS EPITHELIAL CELL UR AU 1 /HPF (0-6); UROBILINOGEN, URINE AUTO 0.2 mg/dL (0.0-2.0); WBC, URINE AUTO 0 /HPF (0-3)
[2020-03-10 13:32] LABS: HEMOGLOBIN 14.1 g/dl (12.0-15.5)
[2020-03-10 13:48] LABS: ALT/SGPT 190 U/L (12-78); BILIRUBIN,TOTAL 0.7 MG/DL (0.2-1.0); BLOOD UREA NITROGEN 11 MG/DL (7-18); CALCIUM LEVEL 9.7 MG/DL (8.5-10.1); CARBON DIOXIDE LEVEL 26 MEQ/L (21-32); CHLORIDE LEVEL 106 MEQ/L (98-107); CHOLESTEROL LEVEL 270 MG/DL (<200); CHOLESTEROL RISK RATIO 5.094 (<5); CREATININE FOR GFR 0.99 MG/DL (0.55-1.30); FREE T4 1.07 NG/DL (0.76-1.46); GLOMERULAR FILTRATION RATE > 60.0 (>58); GLUCOSE, FASTING 107 MG/DL (70-100); HDL CHOLESTEROL 53 MG/DL (>40); LDL CHOLESTEROL 186 MG/DL (<100); NON-HDL-C 217 MG/DL; POTASSIUM SERUM 4.5 MEQ/L (3.5-5.1); SODIUM LEVEL 139 MEQ/L (136-145); TOTAL PROTEIN 7.6 GM/DL (6.4-8.2); TRIGLYCERIDES LEVEL 157 MG/DL (<150)
[2020-03-10 14:43] LABS: TOTAL 25(OH) VITAMIN D 57.5 NG/ML (30.0-100.0); VITAMIN B12 LEVEL 889 PG/ML (247-911)
== END ==
LOC: M LAB REF 12:17
PROVIDERS: ATTEND Family Medicine
DX: I10 Essential (primary) hypertension (principal); F33.9 Major depressive disorder, recurrent, unspecified; E55.9 Vitamin D deficiency, unspecified

== ENCOUNTER 2020-03-16 11:37 | Emergency (ER) | payer OTHER ==
[~2020-03-16] VITALS: Ht 162.6 cm; Wt 81.8 kg
[~2020-03-16 11:37] MED LIST changes: -PERC5TAB12 PO
[2020-03-16 12:24] LABS: BASO # 0.1 10^3/uL (0.0-0.2); BASO % 0.8 % (0.0-1.0); EOS # 0.1 10^3/uL (0.0-0.5); EOS % 0.8 % (0.0-3.0); HEMATOCRIT 43.1 % (36.0-47.0); HEMOGLOBIN 14.2 g/dl (12.0-15.5); LYMPH # 2.8 10^3/uL (1.5-5.0); LYMPH % 44.4 % (24.0-44.0); MEAN CORPUSCULAR HEMOGLOBIN 31.7 pg (27.0-33.0); MEAN CORPUSCULAR HGB CONC 32.9 g/dl (32.0-36.5); MEAN CORPUSCULAR VOLUME 96.2 fl (80.0-96.0); MONO # 0.4 10^3/uL (0.0-0.8); MONO % 6.3 % (0.0-5.0); NEUTROPHILS % 47.5 % (36.0-66.0); PLATELET COUNT, AUTOMATED 270 10^3/uL (150-450); RED BLOOD COUNT 4.48 10^6/uL (4.00-5.40); WHITE BLOOD COUNT 6.4 10^3/uL (4.0-10.0)
[2020-03-16] MEDS ORDERED: ISOVUE-370 76% 100ML VIAL As Ordered ONE (12:29)
[2020-03-16] MEDS: MORPHINE 2 MG/ML 1ML VIAL (J2270) IV PRN ×2 (12:33→14:55)
[2020-03-16 12:36] LABS: INR 1.2; PROTHROMBIN TIME 14.9 SECONDS (11.8-14.0)
[2020-03-16 12:38] LABS: D-DIMER QUANT 678.97 ng/ml (<500)
[2020-03-16 12:40] LABS: BLOOD UREA NITROGEN 15 MG/DL (7-18); CALCIUM LEVEL 9.7 MG/DL (8.5-10.1); CARBON DIOXIDE LEVEL 26 MEQ/L (21-32); CHLORIDE LEVEL 108 MEQ/L (98-107); CREATININE FOR GFR 0.97 MG/DL (0.55-1.30); GLOMERULAR FILTRATION RATE > 60.0 (>58); GLUCOSE, FASTING 126 MG/DL (70-100); POTASSIUM SERUM 4.2 MEQ/L (3.5-5.1); SODIUM LEVEL 140 MEQ/L (136-145)
--- NOTE | 2020-03-16 13:00 | REP ---
PORTABLE CHEST X-RAY: SINGLE VIEW. HISTORY: Chest pain. Comparison chest x-ray: March 07, 2020 FINDINGS: Monitoring electrodes overlie the chest. The lungs are well inflated and clear. Pleural angles are sharp. Heart size is normal. Pulmonary vasculature is not increased. IMPRESSION: No active disease. Electronically Signed by Richard Mckeon MD 03/16/2020 05:14 P
--- NOTE | 2020-03-16 14:07 | REP ---
REASON: Followup. COMPARISON: Multiple, the latest 03/08/2020 which showed improvement in previously described pulmonary emboli. CONTRAST: 100 mL Isovue 370. There is excellent visualization of the pulmonary arterial vasculature. The filling defect seen in the left pulmonary artery once again, has gotten smaller. No new focal filling defects have developed in the pulmonary arteries. The thoracic aorta is unchanged and again seen to be within normal limits. The mediastinum and pulmonary adela are unchanged and again seen to be within normal limits. There are no pleural or pericardial effusions. There is no change in the imaged upper abdomen or imaged osseous structures. They remain within normal limits. Evaluation of the lung ruggiero shows them to be stable without evidence of new abnormal nodules, masses, or opacities. IMPRESSION: Continued improvement in pulmonary embolus with no evidence of acute disease as described above. Electronically Signed by Quan Michel DO 03/16/2020 05:04 P
--- NOTE | 2020-03-16 14:26 | REP ---
Duplex extremity venous ultrasound: Left lower extremity. History: Pain and swelling. Recent PA. Rule out DVT. Findings: The deep veins are anechoic and fully compressible from the groin to the popliteal fossa in the left lower extremity. Color flow imaging is homogeneous. Spectral Doppler interrogation demonstrates intact respiratory variation in flow and normal manual augmentation of flow. There is no evidence of deep vein thrombosis. Impression: Negative left lower extremity duplex venous ultrasound. No evidence of deep vein thrombosis. Electronically Signed by Richard Mckeon MD 03/16/2020 02:17 P
[2020-03-16] MEDS ORDERED: PERC5TAB12 PO (15:00)
[2020-03-16 15:24] VITALS: BP 137/92
--- NOTE | 2020-03-17 01:16 | ECGEPIP ---
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
== END 2020-03-16 15:30 | disposition home or self-care (01) ==
LOC: M ED 11:37
DX: R22.42 Localized swelling, mass and lump, left lower limb (principal); I26.99 Other pulmonary embolism without acute cor pulmonale; R07.9 Chest pain, unspecified; K50.90 Crohn's disease, unspecified, without complications; Z87.891 Personal history of nicotine dependence; Z79.01 Long term (current) use of anticoagulants; Z79.899 Other long term (current) drug therapy; Z88.2 Allergy status to sulfonamides; Z88.1 Allergy status to other antibiotic agents
CPT/HCPCS: 71045; 71275; 80047; 80048; 84484; 84702; 85025; 85379; 85610; 93005; 93041; 93971; 94760; 96374; 96376; 99285; J2270; Q9967

== ENCOUNTER → 2020-03-30 | Outpatient (REF) | payer OTHER ==
[~2020-03-30] MED LIST changes: +PERC5TAB12 PO
[2020-03-30 17:25] LABS: HEMATOCRIT 42.6 % (36.0-47.0); HEMOGLOBIN 14.2 g/dl (12.0-15.5); MEAN CORPUSCULAR HEMOGLOBIN 31.8 pg (27.0-33.0); MEAN CORPUSCULAR HGB CONC 33.3 g/dl (32.0-36.5); MEAN CORPUSCULAR VOLUME 95.3 fl (80.0-96.0); PLATELET COUNT, AUTOMATED 216 10^3/uL (150-450); RED BLOOD COUNT 4.47 10^6/uL (4.00-5.40); WHITE BLOOD COUNT 6.5 10^3/uL (4.0-10.0)
== END ==
LOC: M LAB REF 16:33
PROVIDERS: ATTEND Internal Medicine Pulmonary Disease
DX: I26.92 Saddle embolus of pulmonary artery without acute cor pulmonale (principal)

== ENCOUNTER 2020-04-25 15:50 | Emergency (ER) | payer OTHER ==
[2020-04-25] MEDS ORDERED: ISOVUE-370 76% 100ML VIAL ONE (18:58)
[2020-04-25] MEDS ORDERED: PERCOCET 5MG/325MG TAB ONE (20:08)
[2020-05-29 13:57] LABS: BASO # 0.1 10^3/uL (0.0-0.2); BASO % 0.6 % (0.0-1.0); EOS # 0.1 10^3/uL (0.0-0.5); EOS % 0.6 % (0.0-3.0); HEMATOCRIT 41.3 % (36.0-47.0); HEMOGLOBIN 13.6 g/dl (12.0-15.5); LYMPH # 3.8 10^3/uL (1.5-5.0); MEAN CORPUSCULAR HEMOGLOBIN 31.3 pg (27.0-33.0); MEAN CORPUSCULAR HGB CONC 32.9 g/dl (32.0-36.5); MEAN CORPUSCULAR VOLUME 94.9 fl (80.0-96.0); MONO # 0.6 10^3/uL (0.0-0.8); NEUTROPHILS # 3.3 10^3/uL (1.5-8.5); NEUTROPHILS % 42.5 % (36.0-66.0); PLATELET COUNT, AUTOMATED 221 10^3/uL (150-450); RED BLOOD COUNT 4.35 10^6/uL (4.00-5.40); WHITE BLOOD COUNT 7.8 10^3/uL (4.0-10.0)
[2020-06-08 14:04] LABS: ALBUMIN 3.6 GM/DL (3.2-5.2); ALT/SGPT 50 U/L (12-78); BILIRUBIN,DIRECT < 0.1 MG/DL (0.0-0.2); BILIRUBIN,TOTAL 0.3 MG/DL (0.2-1.0); BLOOD UREA NITROGEN 13 MG/DL (7-18); CALCIUM LEVEL 8.9 MG/DL (8.5-10.1); CARBON DIOXIDE LEVEL 26 MEQ/L (21-32); CHLORIDE LEVEL 108 MEQ/L (98-107); CK-MB VALUE MASS < 1.0 NG/ML (<3.6); CPK CREATINE PHOSPHOKINASE 60 U/L (26-192); CREATININE FOR GFR 1.06 MG/DL (0.55-1.30); GLOMERULAR FILTRATION RATE > 60.0 (>58); GLUCOSE, FASTING 87 MG/DL (70-100); MB/CK RELATIVE INDEX 1.67 (< OR =4); SODIUM LEVEL 141 MEQ/L (136-145); TOTAL PROTEIN 6.8 GM/DL (6.4-8.2); TROPONIN I < 0.02 NG/ML (< 0.10)
--- NOTE | 2020-06-17 15:53 | ECGEPIP ---
SINUS RHYTHM NORMAL ECG NO PRIOR DUE TO DOWNTIME SEE SCANNED DOWNTIME REPORT MTDD
== END 2020-04-25 21:30 | disposition home or self-care (01) ==
LOC: M ED 15:50
DX: R07.9 Chest pain, unspecified (principal); R06.02 Shortness of breath; I10 Essential (primary) hypertension; E78.5 Hyperlipidemia, unspecified; Z86.711 Personal history of pulmonary embolism; Z79.899 Other long term (current) drug therapy; Z79.01 Long term (current) use of anticoagulants; Z79.3 Long term (current) use of hormonal contraceptives; Z88.2 Allergy status to sulfonamides
CPT/HCPCS: 71045; 71275; 80048; 80076; 82550; 82553; 84484; 85025; 93005; 99284; Q9967

== ENCOUNTER → 2020-06-13 | Outpatient (CLI) | payer OTHER ==
--- NOTE | 2020-06-16 17:10 | SLEEPHOME ---
DATE: 06/13/2020 ORDERED BY: Hi Gonzalez MD Diagnostic home sleep testing was performed due to concern for the obstructive sleep apnea syndrome. For testing, a nocturnal T3 respiratory monitoring device was used. Continuous record was made of pulse, oxygen saturation, air flow, chest and abdominal strain, and body position. Nine hours and 41 minutes of data were reviewed. There were 9 hours and 8 minutes marked as time in bed. During the interval marked time in bed, there were 91 respiratory events identified of 10 seconds in duration or greater for a respiratory event index of 10. The events were primarily obstructive with 6 mixed and central apneas seen. Baseline pulse rate 75. Pulse rate ranged 61 to 98. Baseline saturation was 94%. Saturations fell to 89%. Testing was performed in both the supine and non-supine positions. IMPRESSION: Abnormal home sleep testing with repetitive respiratory events and oxygen desaturations to 89% with a respiratory event index of 10 is consistent with the obstructive sleep apnea syndrome. RECOMMENDATION: The patient should be encouraged to undergo a formal sleep evaluation. [facility]
== END ==
LOC: M SLEEP HO 12:22
PROVIDERS: ATTEND Internal Medicine Pulmonary Disease
DX: R06.83 Snoring (principal)

== ENCOUNTER → 2020-07-01 | Outpatient (CLI) | payer OTHER ==
--- NOTE | 2020-07-07 14:17 | SLEEPCENT ---
DATE: 07/01/2020 ORDERED BY: Dr. Gonzalez Nocturnal polysomnography was performed for the titration of pressure therapy in this patient with a clinical diagnosis of obstructive sleep apnea syndrome, supported by home testing, revealing a respiratory event index of 10. For testing, patient was fit with a ResMed AirFit F20 full-face mask of small size. There was 4 cm of water pressure applied to the circuit, and the lights were extinguished. There was 7 hours and 43 minutes of data reviewed. There was 385 minutes of sleep identified. Sleep latency was prolonged at 41.5 minutes. REM latency was prolonged at 192 minutes. Sleep architecture was fair with one long REM cycle noted mid the study. Overall sleep efficiency was 84.8%. The electrocardiogram showed a sinus rhythm with an average heart rate of 2 beats per minute. EEG showed normal waveforms for wake and sleep. Respiratory events were fully palliated with CPAP at a pressure of +7, and remaining measures of sleep physiology were reasonably normal. IMPRESSION: Obstructive sleep apnea syndrome (G47.33). RECOMMENDATION: Nightly use of pressure therapy, 7 cm of water. MTDD
== END ==
LOC: M SLEEP 20:00
PROVIDERS: ATTEND Internal Medicine Pulmonary Disease
DX: G47.33 Obstructive sleep apnea (adult) (pediatric) (principal)

== ENCOUNTER → 2020-11-29 | Outpatient (CLI) | payer OTHER ==
[~2020-11-29] MED LIST changes: +GABA-282 PO; -GABA-843 PO; +LISI10TA22 PO; -LISI10TA4 PO
--- NOTE | 2020-11-29 14:24 | REPPI ---
INDICATION: I26.62 SADDLE EMBOLUS OF PULMPNARY ARTERY W/O ACUTE COR PULM COMPARISON: 04/25/2020 TECHNIQUE: PA and lateral. FINDINGS: The mediastinum and cardiac silhouette are normal. The lung ruggiero are clear and without acute consolidation, effusion, or pneumothorax. The skeletal structures are intact and normal. IMPRESSION: No acute cardiopulmonary process. <Electronically signed by Jair Roca > 11/29/20 [id number]
== END ==
LOC: M PLAIMG 13:58
PROVIDERS: ATTEND Internal Medicine Pulmonary Disease
DX: I26.92 Saddle embolus of pulmonary artery without acute cor pulmonale (principal)

== ENCOUNTER 2020-12-01 17:45 | Emergency (ER) | payer OTHER ==
[~2020-12-01] VITALS: Ht 160 cm; Wt 86.5 kg
[2020-12-01] MEDS ORDERED: ELIQ5TAB PO (18:08)
[2020-12-01] MEDS ORDERED: diazePAM 10MG/2ML SYRINGE (J3360 PER 5MG) IV ONE (18:10)
[2020-12-01 18:17] LABS: BASO # 0.1 10^3/uL (0.0-0.2); BASO % 0.6 % (0.0-1.0); EOS # 0.1 10^3/uL (0.0-0.5); EOS % 1.4 % (0.0-3.0); HEMATOCRIT 42.8 % (36.0-47.0); HEMOGLOBIN 13.8 g/dl (12.0-15.5); LYMPH # 3.3 10^3/uL (1.5-5.0); MEAN CORPUSCULAR HEMOGLOBIN 30.9 pg (27.0-33.0); MEAN CORPUSCULAR HGB CONC 32.2 g/dl (32.0-36.5); MONO # 0.7 10^3/uL (0.0-0.8); MONO % 7.8 % (2.0-8.0); NEUTROPHILS # 4.7 10^3/uL (1.5-8.5); PLATELET COUNT, AUTOMATED 226 10^3/uL (150-450); RED BLOOD COUNT 4.46 10^6/uL (4.00-5.40); WHITE BLOOD COUNT 8.8 10^3/uL (4.0-10.0)
[2020-12-01 18:28] LABS: INR 0.98; PARTIAL THROMBOPLASTIN TIME 26.8 SECONDS (24.2-38.5); PROTHROMBIN TIME 13.2 SECONDS (12.5-14.3)
[2020-12-01 18:51] LABS: HCG, SERUM QUALITATIVE NEGATIVE (NEGATIVE)
[2020-12-01 18:54] LABS: ALT/SGPT 31 U/L (12-78); BILIRUBIN,DIRECT < 0.1 MG/DL (0.0-0.2); BILIRUBIN,TOTAL 0.3 MG/DL (0.2-1.0); CK-MB VALUE MASS 1.3 NG/ML (<3.6); CPK CREATINE PHOSPHOKINASE 135 U/L (26-192); FREE T4 1.01 NG/DL (0.76-1.46); LIPASE 118 U/L (73-393); MB/CK RELATIVE INDEX 0.96 (< OR =4); TROPONIN I < 0.02 NG/ML (< 0.10)
[2020-12-01] MEDS ORDERED: ISOVUE-370 76% 100ML VIAL As Ordered ONE (18:55)
--- NOTE | 2020-12-01 19:13 | REP ---
INDICATION: CHEST PAIN COMPARISON: 11/29/2020 TECHNIQUE: Portable AP view of the chest FINDINGS: The mediastinum and cardiac silhouette are stable and within normal limits for portable technique. The lung ruggiero are clear without acute consolidation, effusion, or pneumothorax. Skeletal structures are intact. IMPRESSION: No acute cardiopulmonary process appreciated. <Electronically signed by Jair Roca > 12/01/20 [id number]
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
[2020-12-01] MEDS ORDERED: ACETAMINOPHEN 325 MG TAB PO ONE (19:35)
[2020-12-01] MEDS ORDERED: METOCLOPRAMIDE INJ 10MG/2ML VIAL (J2765 PER 1) IV ONE (19:35)
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
--- NOTE | 2020-12-01 20:00 | REPVR ---
PROCEDURE INFORMATION: Exam: CT Angiography Chest With Contrast Exam date and time: 12/01/2020 7:14 PM Age: 45 years old Clinical indication: Shortness of breath; Additional info: SOB; Chest pain; HX of pe TECHNIQUE: Imaging protocol: Computed tomographic angiography of the chest with contrast. 3D rendering (Not supervised by radiologist): MIP and/or 3D reconstructed images were created by the technologist. Radiation optimization: All CT scans at this facility use at least one of these dose optimization techniques: automated exposure control; mA and/or kV adjustment per patient size (includes targeted exams where dose is matched to clinical indication); or iterative reconstruction. Contrast material: ISOVUE 370; Contrast volume: 75 ml; Contrast route: INTRAVENOUS (IV); COMPARISON: CT ANGIO CHEST 04/25/2020 6:56 PM FINDINGS: Pulmonary arteries: There are no pulmonary emboli. Aorta: There is no aortic dissection or aneurysm. Lungs: Calcified granuloma right lower lobe. Lungs otherwise clear. Pleural spaces: Unremarkable. No pneumothorax. No pleural effusion. Heart: Unremarkable. No cardiomegaly. No pericardial effusion. Lymph nodes: Unremarkable. No enlarged lymph nodes. Spleen: The spleen demonstrates punctate calcifications, consistent with remote granulomatous organism exposure. Bones/joints: Unremarkable. No acute fracture. Soft tissues: Unremarkable. IMPRESSION: 1. There is no aortic dissection or aneurysm. 2. There are no pulmonary emboli. No acute pulmonary parenchymal abnormalities. Electronically signed by: Marco A Bertrand On 12/01/2020 20:00:43 PM
[2020-12-01] MEDS ORDERED: GABAPENTIN 300 MG CAP PO ONE (20:30)
[2020-12-01] MEDS ORDERED: APIXABAN 5 MG TAB (ELIQUIS) PO ONE (20:30)
[2020-12-01] MEDS ORDERED: PROPRANOLOL 10 MG TAB PO ONE (20:30)
[2020-12-01 20:47] VITALS: BP 135/80
[2020-12-01 21:53] VITALS: BP 138/80
--- NOTE | 2020-12-02 08:15 | ECGEPIP ---
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
== END 2020-12-01 22:00 | disposition home or self-care (01) ==
LOC: M ED 17:45
DX: G44.209 Tension-type headache, unspecified, not intractable (principal); R07.9 Chest pain, unspecified; R00.1 Bradycardia, unspecified; I10 Essential (primary) hypertension; K21.9 Gastro-esophageal reflux disease without esophagitis; K50.90 Crohn's disease, unspecified, without complications; F41.9 Anxiety disorder, unspecified; F32.9 Major depressive disorder, single episode, unspecified; Z86.711 Personal history of pulmonary embolism; F12.10 Cannabis abuse, uncomplicated; Z79.01 Long term (current) use of anticoagulants; Z79.899 Other long term (current) drug therapy; Z88.2 Allergy status to sulfonamides; Z88.8 Allergy status to other drugs, medicaments and biological substances
CPT/HCPCS: 70450; 71045; 71275; 72125; 80047; 80076; 82550; 82553; 83690; 84439; 84443; 84484; 84703; 85025; 85610; 85730; 93005; 93041; 94760; 96374; 96375; 99285; J2765; J3360; Q9967

== ENCOUNTER 2021-04-20 17:37 | Emergency (ER) | payer OTHER ==
[~2021-04-20] VITALS: Ht 162.6 cm; Wt 85.1 kg
[~2021-04-20 17:37] MED LIST changes: +ACYC1TAB PO; -ACYC400T PO; +ERGO500029 PO; -VITA50005 PO
[2021-04-20] MEDS ORDERED: METH4PACK (17:46)
[2021-04-20] MEDS ORDERED: ASPI325T57 PO (17:46)
[2021-04-20] MEDS ORDERED: PERCOCET 5MG/325MG TAB PO ONE (19:50)
[2021-04-20 20:29] VITALS: BP 152/98
[2021-04-20] MEDS ORDERED: PERC5TAB12 PO (20:29)
== END 2021-04-20 20:45 | disposition home or self-care (01) ==
LOC: M ED 17:37
DX: M50.30 Other cervical disc degeneration, unspecified cervical region (principal); M54.2 Cervicalgia; M62.838 Other muscle spasm; Z79.899 Other long term (current) drug therapy; Z88.2 Allergy status to sulfonamides

== ENCOUNTER → 2021-04-25 | Outpatient (CLI) | payer OTHER ==
[~2021-04-25] MED LIST changes: +ASPI325T57 PO; +METH4PACK
--- NOTE | 2021-04-26 13:12 | REPVR ---
PROCEDURE INFORMATION: Exam: MR Cervical Spine Without Contrast Exam date and time: 04/25/2021 9:00 AM Age: 45 years old Clinical indication: Neck pain; Additional info: Spondylosis TECHNIQUE: Imaging protocol: Multiplanar magnetic resonance images of the cervical spine without contrast. COMPARISON: CT Spine,cervical w/o contrast 12/01/2020 7:14 PM FINDINGS: Vertebrae: Straightening of the upper cervical lordosis may be positional or due to muscle spasm. No acute fracture seen. Spinal cord: Normal signal. No cord compression. Mild cervical disc desiccation. No high-grade disc height loss. Minimal posterior endplate osteophytic ridging at C5-C6. Slight prevertebral spondylosis from C3-C4 through C5-C6. C2-C3: No stenoses. C3-C4: The central spinal canal is patent. [id number] left facet arthropathy causing mild left neural foraminal stenosis. The right neural foramen is patent. C4-C5: Mild left uncovertebral arthropathy without contribution to significant foraminal narrowing. The central spinal canal is patent. C5-C6: Mild disc osteophyte complex and slight ligamentum flavum buckling. The central spinal canal remains patent. Uncovertebral and facet arthropathy causing [id number] left neural foraminal stenosis. No significant right neural foraminal narrowing. C6-C7: Slight disc bulge and ligamentum flavum buckling. The central spinal canal remains patent. The left uncovertebral osteophyte and to a lesser extent facet arthropathy causing moderate to severe left neural foraminal stenosis. The right neural foramen is patent. C7-T1: No significant disc disease. No significant spinal stenosis. Soft tissues: Unremarkable. Vertebral arteries: Expected flow voids in the vertebral arteries. IMPRESSION: Moderate to severe left neural foraminal stenosis at C6-C7. Electronically signed by: Raven Dumont On 04/26/2021 13:11:45 PM
== END ==
LOC: M PLAIMG 08:06
PROVIDERS: ATTEND Physician Assistant
DX: M99.51 Intervertebral disc stenosis of neural canal of cervical region (principal)

== ENCOUNTER 2021-05-05 20:52 | Emergency (ER) | payer OTHER, SELFPAY ==
[~2021-05-05] VITALS: Ht 162.6 cm; Wt 83.3 kg
[2021-05-05] MEDS ORDERED: TRAM50TA2 PO (21:02)
[2021-05-05] MEDS ORDERED: PROZ40CA PO (21:02)
[2021-05-05] MEDS ORDERED: ACYC1TAB4 PO (21:02)
[2021-05-05] MEDS ORDERED: ACET-861 PO (21:02)
[2021-05-05] MEDS ORDERED: IBUP80TA PO (21:02)
[2021-05-06] MEDS ORDERED: SKEL800T97 PO (03:44)
[2021-05-06] MEDS ORDERED: PERCOCET 5MG/325MG TAB PO ONE (03:45)
[2021-05-06 04:26] VITALS: BP 144/80
== END 2021-05-06 04:27 | disposition home or self-care (01) ==
LOC: M ED 20:52
DX: M50.90 Cervical disc disorder, unspecified, unspecified cervical region (principal); G89.4 Chronic pain syndrome; G43.909 Migraine, unspecified, not intractable, without status migrainosus; K50.919 Crohn's disease, unspecified, with unspecified complications; Z86.711 Personal history of pulmonary embolism; Z79.82 Long term (current) use of aspirin; Z79.899 Other long term (current) drug therapy; Z88.2 Allergy status to sulfonamides

== ENCOUNTER → 2023-05-02 | Outpatient (CLI) | payer OTHER ==
[~2023-05-02] MED LIST changes: +ACET-861 PO; +ACYC1TAB4 PO; +IBUP80TA PO; +PROZ40CA PO; +SKEL800T97 PO; +TRAM50TA2 PO
[2023-05-02 11:21] LABS: BASO # 0.1 10^3/uL (0.0-0.2); BASO % 0.8 % (0.0-1.0); EOS # 0.1 10^3/uL (0.0-0.5); EOS % 2.2 % (0.0-3.0); HEMATOCRIT 42.6 % (36.0-47.0); LYMPH # 2.3 10^3/uL (1.5-5.0); LYMPH % 38.1 % (24.0-44.0); MEAN CORPUSCULAR HEMOGLOBIN 30.8 pg (27.0-33.0); MEAN CORPUSCULAR HGB CONC 32.9 g/dl (32.0-36.5); MEAN CORPUSCULAR VOLUME 93.8 fl (80.0-96.0); MONO # 0.4 10^3/uL (0.0-0.8); MONO % 6.3 % (2.0-8.0); NEUTROPHILS # 3.2 10^3/uL (1.5-8.5); NEUTROPHILS % 52.4 % (36.0-66.0); PLATELET COUNT, AUTOMATED 201 10^3/uL (150-450); RED BLOOD COUNT 4.54 10^6/uL (4.00-5.40)
[2023-05-02 11:46] LABS: C REACTIVE PROTEIN QUANTITATIV < 0.40 MG/DL (<1.0)
[2023-05-02 11:47] LABS: IRON (FE) 57 UG/DL (50-170)
[2023-05-02 11:48] LABS: ALBUMIN 3.8 G/DL (3.2-5.2); ALKALINE PHOSPHATASE 60 U/L (46-116); ALT/SGPT 14 U/L (7.0-40); AST/SGOT 9 U/L (<34); BILIRUBIN,DIRECT 0.2 MG/DL (<0.4); BILIRUBIN,TOTAL 0.8 MG/DL (0.3-1.2); BLOOD UREA NITROGEN 13 MG/DL (9-23); CREATININE FOR GFR 0.75 MG/DL (0.55-1.30); FERRITIN 71.1 NG/ML (7.3-270.7); GLOMERULAR FILTRATION RATE > 60.0 (>58); PERCENT SATURATION 17.1 % (13.2-45.0); TOTAL IRON BINDING CAPACITY 333 UG/DL (250-425); TOTAL PROTEIN 6.4 G/DL (5.7-8.2)
[2023-05-02 12:09] LABS: ERYTHROCYTE SEDIMENTATION RATE 11 mm/hr (0-20)
== END ==
LOC: M PLALAB 08:52
PROVIDERS: ATTEND Nurse Practitioner Acute Care
DX: K50.80 Crohn's disease of both small and large intestine without complications (principal)

== ENCOUNTER 2023-05-07 09:38 | Day surgery (SDC) | payer OTHER ==
[~2023-05-07] VITALS: Ht 162.6 cm; Wt 66.5 kg
[~2023-05-07 09:38] MED LIST changes: +NS 1,000 ML IV ONE; +SUPETAB44 PO
[2023-05-07] MEDS ORDERED: fentaNYL 100 MCG/2 ML INJECTION As Ordered ONE (11:42)
[2023-05-07] MEDS ORDERED: propofoL 500 MG/50 ML VIAL As Ordered ONE (11:42)
[2023-05-07] MEDS ORDERED: LIDOCAINE 2% 100MG/5ML SDV (FOR ANES.) As Ordered ONE (11:42)
[2023-05-07] MEDS ORDERED: ONDANSETRON 4MG 2ML VIAL As Ordered ONE (11:43)
[2023-05-07] MEDS ORDERED: ePHEDrine SULFATE 25 MG/5 ML(5MG/ML) SYRINGE As Ordered ONE (11:48)
[2023-05-07 12:28] VITALS: BP 125/72; O2SAT 99
== END 2023-05-07 12:31 | disposition home or self-care (01) ==
LOC: M OPP 09:38
PROVIDERS: ATTEND Internal Medicine Gastroenterology
DX: Z12.11 Encounter for screening for malignant neoplasm of colon (principal); K63.5 Polyp of colon; K64.4 Residual hemorrhoidal skin tags; K64.8 Other hemorrhoids; K29.70 Gastritis, unspecified, without bleeding; F17.200 Nicotine dependence, unspecified, uncomplicated; Z79.891 Long term (current) use of opiate analgesic; Z79.899 Other long term (current) drug therapy; Z88.2 Allergy status to sulfonamides
CPT/HCPCS: 43239; 45380; 45385; 88305; J2405; J3010

== ENCOUNTER → 2024-05-07 | Outpatient (REF) | payer OTHER ==
[~2024-05-07] MED LIST changes: -EFFE150C2 PO; +EFFE150C3 PO; -NS 1,000 ML IV ONE
== END ==
LOC: M LAB REF 15:54
PROVIDERS: ATTEND Dentist
DX: L02.91 Cutaneous abscess, unspecified (principal)